=== PATIENT | male | born 1955 | race Hispanic/Latino ===

== ENCOUNTER 2019-08-08 19:35 | Inpatient (IN) | payer MEDICARE ==
[~2019-08-08] VITALS: Ht 180.3 cm; Wt 90.7 kg
--- OUTSIDE RECORDS SUMMARY | 2019-08-08 19:38 | XMS REPORT ---
Author [facility] Address Unknown Phone Unavailable Care Team Providers Care Driller Brake Lining Name Role Phone Unavailable Unavailable Payers Payer Name Policy Type Policy Number Effective Date Expiration Date Problems This patient has no known problems. Allergies, Adverse Reactions, Alerts Allergy Name Allergy Type Status Severity Reaction(s) Onset Date Inactive Date Treating Clinician Comments No Known Allergies DA Active U 2018-07-26 00:00:00 Medications This patient has no known medications. Results Test Description Test Time Test Comments Text Results Atomic Results Result Comments CBC W/AUTO DIFF 2018-07-30 06:21:00 WHITE BLOOD CELL (test code=WBC) 6.4 X10(3) 4.5-11.0 RED BLOOD CELL (test code=RBC) 3.16 X10(6) 4.3-5.9 HEMOGLOBIN (test code=HGB) 11.9 g/dL 13.5-18.0 HEMATOCRIT (test code=HCT) 33.9 % 42.0-52.0 MEAN CELL VOLUME (test code=MCV) 107.3 fl 78-100 MEAN CELL HGB (test code=MCH) 37.7 pg 26.0-34.0 MEAN CELL HGB CONCETRATION (test code=MCHC) 35.1 g/dl 30.0-37.0 RED CELL DISTRIBUTION WIDTH (test code=RDW) 14.9 % 11.5-14.5 PLATELET COUNT (test code=PLT) 149 X10(3) 150-350 MEAN PLATELET VOLUME (test code=MPV) 9.6 fl 8.7-11.4 NEUTROPHIL % (test code=NT%) 52.5 % 36.0-66.0 IMMATURE GRANULOCYTE % (test code=IG%) 0.8 % 0.0-2.0 LYMPHOCYTE % (test code=LY%) 25.4 % 16-50 MONOCYTE % (test code=MO%) 16.1 % 0.0-13.0 EOSINOPHIL % (test code=EO%) 4.6 % 0.0-4.5 BASOPHIL % (test code=BA%) 0.6 % 0.0-1.5 NUCLEATED RBC % (test code=NRBC%) 0.0 % 0-0.2 NEUTROPHIL # (test code=NT#) 3.3 X10(3) 1.7-7.7 IMMATURE GRANULOCYTE # (test code=IG#) 0.05 X10(3)uL 0.00-0.03 LYMPHOCYTE # (test code=LY#) 1.6 X10(3) 0.7-4.0 MONOCYTE # (test code=MO#) 1.0 X10(3) 0.0-0.89 EOSINOPHIL # (test code=EO#) 0.3 X10(3) 0.0-0.6 BASOPHIL # (test code=BA#) 0.0 X10(3) 0.0-0.2 NUCLEATED RBC # (test code=NRBC#) 0.00 K/mm3 0.0-0.1 ANISOCYTOSIS (test code=ANISO) 1+ NOT PRESENT MACROCYTOSIS (test code=MACR) 1+ NOT PRESENT PLATELET ESTIMATE (test code=PLTEST) DECREASED ADEQUATE COMPREHENSIVE METABOLIC [id number] 06:06:00* Test Item Value Reference Range Comments SODIUM (test code=NA) 132 mmol/L 136-145 POTASSIUM (test code=K) 4.1 mmol/L 3.5-5.1 CHLORIDE (test code=CL) 100 mmol/L 98-107 CARBON DIOXIDE (test code=CO2) 26 mmol/L 21-32 GLUCOSE (test code=GLU) 88 mg/dL 70-100 BLOOD UREA NITROGEN (test code=BUN) 15 mg/dL 7-18 GLOMERULAR FILTRATION RATE (test code=GFR) > 60.00 >=60 Reporting units: mL/min/1.73m\\S\\2 (Modified MDRD formula)REFERENCE RANGE: > or=60 ml/min/1.73M2IF PATIENT IS -PRYDEINIG, MULTIPLY REPORTED RESULT BY1.21. CREATININE (test code=CREAT) 0.70 mg/dL 0.67-1.17 TOTAL PROTEIN (test code=PROT) 6.2 g/dl 6.4-8.2 ALBUMIN (test code=ALB) 1.9 g/dl 3.4-5.0 CALCIUM (test code=CA) 7.1 mg/dL 8.5-10.1 BILIRUBIN TOTAL (test code=BILT) 5.2 mg/dl 0.2-1.0 SGOT/AST (test code=AST) 63 U/L 15-37 SGPT/ALT (test code=ALT) 31 U/L 12-78 ALKALINE PHOSPHATASE TOTAL (test code=ALKP) 132 U/L 50-136 CBC W/AUTO [id number] 05:49:00* Test Item Value Reference Range Comments WHITE BLOOD CELL (test code=WBC) 6.4 X10(3) 4.5-11.0 RED BLOOD CELL (test code=RBC) 3.16 X10(6) 4.3-5.9 HEMOGLOBIN (test code=HGB) 11.9 g/dL 13.5-18.0 HEMATOCRIT (test code=HCT) 33.9 % 42.0-52.0 MEAN CELL VOLUME (test code=MCV) 107.3 fl 78-100 MEAN CELL HGB (test code=MCH) 37.7 pg 26.0-34.0 MEAN CELL HGB CONCETRATION (test code=MCHC) 35.1 g/dl 30.0-37.0 RED CELL DISTRIBUTION WIDTH (test code=RDW) 14.9 % 11.5-14.5 PLATELET COUNT (test code=PLT) 149 X10(3) 150-350 MEAN PLATELET VOLUME (test code=MPV) 9.6 fl 8.7-11.4 NUCLEATED RBC % (test code=NRBC%) 0.0 % 0-0.2 NUCLEATED RBC # (test code=NRBC#) 0.00 K/mm3 0.0-0.1 CBC W/AUTO [id number] 07:01:00* Test Item Value Reference Range Comments WHITE BLOOD CELL (test code=WBC) 5.9 X10(3) 4.5-11.0 RED BLOOD CELL (test code=RBC) 2.81 X10(6) 4.3-5.9 HEMOGLOBIN (test code=HGB) 10.6 g/dL 13.5-18.0 HEMATOCRIT (test code=HCT) 30.2 % 42.0-52.0 MEAN CELL VOLUME (test code=MCV) 107.5 fl 78-100 MEAN CELL HGB (test code=MCH) 37.7 pg 26.0-34.0 MEAN CELL HGB CONCETRATION (test code=MCHC) 35.1 g/dl 30.0-37.0 RED CELL DISTRIBUTION WIDTH (test code=RDW) 14.8 % 11.5-14.5 PLATELET COUNT (test code=PLT) 130 X10(3) 150-350 GIANT PLATELETS (test code=PLTG) PRESENT NORMAL MEAN PLATELET VOLUME (test code=MPV) 9.8 fl 8.7-11.4 NUCLEATED RBC % (test code=NRBC%) 0.0 % 0-0.2 NUCLEATED RBC # (test code=NRBC#) 0.00 K/mm3 0.0-0.1 SEGMENTED NEUTROPHILS (test code=SEG) 70 % 36-66 BAND NEUTROPHIL (test code=BAND) 0 % 5-11 LYMPHOCYTE (test code=LYMPH) 13 % 16-50 ATYPICAL LYMPH (test code=ALYMPH) 1 0-0 MONOCYTE (test code=MON) 8 % 0-13 EOSINOPHIL (test code=EOS) 5 % 0-4.5 BASOPHIL (test code=BASO) 2 % 0-1.5 METAMYELOCYTE (test code=META) 1 % >0 BAND ABSOLUTE (test code=BAND#) 0.00 X10(3) 0.0-0.7 NEUTROPHIL ABSOLUTE (test code=NEUTR#) 4.15 X10(3) 1.7-7.7 LYMPH ABSOLUTE (test code=LYMPH#) 0.77 X10(3) 0.7-4.0 ATYPICAL LYMPH ABSOLUTE (test code=ALYMPH#) 0.1 X10(3) 0.0-0.0 MONOCYTE ABSOLUTE (test code=MON#) 0.47 X10(3) 0.0-0.89 BASOPHIL ABSOLUTE (test code=BASO#) 0.1 X10(3) 0.0-0.2 EOSINOPHIL ABSOLUTE (test code=EOS#) 0.30 X10(3) 0.0-0.6 METAMYELO ABSOLUTE (test code=META#) 0.1 X10(3) 0.0-0.0 ANISOCYTOSIS (test code=ANISO) 1+ NOT PRESENT MACROCYTOSIS (test code=MACR) 1+ NOT PRESENT PLATELET ESTIMATE (test code=PLTEST) DECREASED ADEQUATE BASIC METABOLIC [id number] 06:43:00* Test Item Value Reference Range Comments SODIUM (test code=NA) 136 mmol/L 136-145 POTASSIUM (test code=K) 3.4 mmol/L 3.5-5.1 CHLORIDE (test code=CL) 103 mmol/L 98-107 CARBON DIOXIDE (test code=CO2) 26 mmol/L 21-32 GLUCOSE (test code=GLU) 89 mg/dL 70-100 BLOOD UREA NITROGEN (test code=BUN) 16 mg/dL 7-18 GLOMERULAR FILTRATION RATE (test code=GFR) > 60.00 >=60 Reporting units: mL/min/1.73m\\S\\2 (Modified MDRD formula)REFERENCE RANGE: > or=60 ml/min/1.73M2IF PATIENT IS -PRYDEINIG, MULTIPLY REPORTED RESULT BY1.21. CREATININE (test code=CREAT) 0.60 mg/dL 0.67-1.17 CALCIUM (test code=CA) 6.9 mg/dL 8.5-10.1 CBC W/AUTO [id number] 06:27:00* Test Item Value Reference Range Comments WHITE BLOOD CELL (test code=WBC) 5.9 X10(3) 4.5-11.0 RED BLOOD CELL (test code=RBC) 2.81 X10(6) 4.3-5.9 HEMOGLOBIN (test code=HGB) 10.6 g/dL 13.5-18.0 HEMATOCRIT (test code=HCT) 30.2 % 42.0-52.0 MEAN CELL VOLUME (test code=MCV) 107.5 fl 78-100 MEAN CELL HGB (test code=MCH) 37.7 pg 26.0-34.0 MEAN CELL HGB CONCETRATION (test code=MCHC) 35.1 g/dl 30.0-37.0 RED CELL DISTRIBUTION WIDTH (test code=RDW) 14.8 % 11.5-14.5 PLATELET COUNT (test code=PLT) 130 X10(3) 150-350 MEAN PLATELET VOLUME (test code=MPV) 9.8 fl 8.7-11.4 NUCLEATED RBC % (test code=NRBC%) 0.0 % 0-0.2 NUCLEATED RBC # (test code=NRBC#) 0.00 K/mm3 0.0-0.1 CYTOLOGY NON [id number] 15:09:00 RUN DATE: 07/28/18 [facility] LIVE PAGE 1 RUN TIME: 1509 Specimen Inqui ry RUN USER: INTERFACE PATIENT: FAREED FERNANDO ACCT #: H [id number] LOC: [facility] U #: [id number] AGE/SX: 62/M ROOM: [facility] RE07/26/18[facility] DR: Mikel Saldana MD : 53 BED: A DIS: STATUS: ADM IN TLOC: SPEC #: [id number] RECD: 07/27/18 STATUS: ANGELA GERMAN #: [id number] PARRIS: 07/26/18- [facility] DR: Gerson Wei MD ENTERED: 07/27/18 SP TYPE: P OTHR DR: DOES_N OT KNOW Self Referred Gerson Galan MD, Angel Jose MDORDERED: SURG/PATH GROSS, CYTOSPIN PAP/2 GROSS DESCRIPTION: The specimen is re ceived in a container labeled "FAREED FERNANDO R - PERITONEAL FLUID". The specimen consists of 950 cc of unfixed yellow fluid for one H E and one PAP stain. One c ell block was obtained, Bouin's. CODES: [id number] - PERITONEUM, NOS COPIES TO: D OES_NOT KNOW Self Referred Gerson Wei MD [address] [place] [address] Marshal mSith MD [address] [place] [address] PROCEDURES: SURG/PATH GROSS (07/27/18) CYTOSPIN PAP (Incomplete) TISSUES: A. PERITONEUM, NOS - 950CC UNFIXED YELLOW PERITONEAL FLUID PREOPERATIVE DIAGNOSIS/HISTORY ASCITES---- -------- Signed SIGNATURE ON FILE Rigoberto Torres L 9 1509 END OF REPORT CBC W/AUTO [id number] 08:32:00* Test Item Value Reference Range Comments WHITE BLOOD CELL (test code=WBC) 5.3 X10(3) 4.5-11.0 RED BLOOD CELL (test code=RBC) 2.93 X10(6) 4.3-5.9 HEMOGLOBIN (test code=HGB) 10.8 g/dL 13.5-18.0 HEMATOCRIT (test code=HCT) 31.4 % 42.0-52.0 MEAN CELL VOLUME (test code=MCV) 107.2 fl 78-100 MEAN CELL HGB (test code=MCH) 36.9 pg 26.0-34.0 MEAN CELL HGB CONCETRATION (test code=MCHC) 34.4 g/dl 30.0-37.0 RED CELL DISTRIBUTION WIDTH (test code=RDW) 14.6 % 11.5-14.5 PLATELET COUNT (test code=PLT) 116 X10(3) 150-350 GIANT PLATELETS (test code=PLTG) PRESENT NORMAL MEAN PLATELET VOLUME (test code=MPV) 9.8 fl 8.7-11.4 NUCLEATED RBC % (test code=NRBC%) 0.0 % 0-0.2 NUCLEATED RBC # (test code=NRBC#) 0.00 K/mm3 0.0-0.1 SEGMENTED NEUTROPHILS (test code=SEG) 60 % 36-66 BAND NEUTROPHIL (test code=BAND) 0 % 5-11 LYMPHOCYTE (test code=LYMPH) 24 % 16-50 ATYPICAL LYMPH (test code=ALYMPH) 1 0-0 MONOCYTE (test code=MON) 11 % 0-13 EOSINOPHIL (test code=EOS) 3 % 0-4.5 BASOPHIL (test code=BASO) 1 % 0-1.5 BAND ABSOLUTE (test code=BAND#) 0.00 X10(3) 0.0-0.7 NEUTROPHIL ABSOLUTE (test code=NEUTR#) 3.15 X10(3) 1.7-7.7 LYMPH ABSOLUTE (test code=LYMPH#) 1.26 X10(3) 0.7-4.0 ATYPICAL LYMPH ABSOLUTE (test code=ALYMPH#) 0.1 X10(3) 0.0-0.0 MONOCYTE ABSOLUTE (test code=MON#) 0.58 X10(3) 0.0-0.89 BASOPHIL ABSOLUTE (test code=BASO#) 0.1 X10(3) 0.0-0.2 EOSINOPHIL ABSOLUTE (test code=EOS#) 0.16 X10(3) 0.0-0.6 ANISOCYTOSIS (test code=ANISO) 1+ NOT PRESENT MACROCYTOSIS (test code=MACR) 1+ NOT PRESENT PLATELET ESTIMATE (test code=PLTEST) DECREASED ADEQUATE BASIC METABOLIC [id number] 06:17:00* Test Item Value Reference Range Comments SODIUM (test code=NA) 135 mmol/L 136-145 POTASSIUM (test code=K) 3.2 mmol/L 3.5-5.1 CHLORIDE (test code=CL) 103 mmol/L 98-107 CARBON DIOXIDE (test code=CO2) 27 mmol/L 21-32 GLUCOSE (test code=GLU) 132 mg/dL 70-100 BLOOD UREA NITROGEN (test code=BUN) 14 mg/dL 7-18 GLOMERULAR FILTRATION RATE (test code=GFR) > 60.00 >=60 Reporting units: mL/min/1.73m\\S\\2 (Modified MDRD formula)REFERENCE RANGE: > or=60 ml/min/1.73M2IF PATIENT IS -PRYDEINIG, MULTIPLY REPORTED RESULT BY1.21. CREATININE (test code=CREAT) 0.70 mg/dL 0.67-1.17 CALCIUM (test code=CA) 7.5 mg/dL 8.5-10.1 BASIC METABOLIC [id number] 06:16:00* Test Item Value Reference Range Comments SODIUM (test code=NA) 135 mmol/L 136-145 POTASSIUM (test code=K) 3.2 mmol/L 3.5-5.1 CHLORIDE (test code=CL) 103 mmol/L 98-107 CARBON DIOXIDE (test code=CO2) 27 mmol/L 21-32 GLUCOSE (test code=GLU) 132 mg/dL 70-100 BLOOD UREA NITROGEN (test code=BUN) 14 mg/dL 7-18 GLOMERULAR FILTRATION RATE (test code=GFR) >=60 CREATININE (test code=CREAT) mg/dL 0.67-1.17 CALCIUM (test code=CA) 7.5 mg/dL 8.5-10.1 CBC W/AUTO [id number] 06:01:00* Test Item Value Reference Range Comments WHITE BLOOD CELL (test code=WBC) 5.3 X10(3) 4.5-11.0 RED BLOOD CELL (test code=RBC) 2.93 X10(6) 4.3-5.9 HEMOGLOBIN (test code=HGB) 10.8 g/dL 13.5-18.0 HEMATOCRIT (test code=HCT) 31.4 % 42.0-52.0 MEAN CELL VOLUME (test code=MCV) 107.2 fl 78-100 MEAN CELL HGB (test code=MCH) 36.9 pg 26.0-34.0 MEAN CELL HGB CONCETRATION (test code=MCHC) 34.4 g/dl 30.0-37.0 RED CELL DISTRIBUTION WIDTH (test code=RDW) 14.6 % 11.5-14.5 PLATELET COUNT (test code=PLT) 116 X10(3) 150-350 MEAN PLATELET VOLUME (test code=MPV) 9.8 fl 8.7-11.4 NUCLEATED RBC % (test code=NRBC%) 0.0 % 0-0.2 NUCLEATED RBC # (test code=NRBC#) 0.00 K/mm3 0.0-0.[id number] 10:38:00* Test Item Value Reference Range Comments FLUID SOURCE (test code=SOURCEFL) PARACENTESIS FLD FLUID COLOR (test code=COLFL) YELLOW COLORLESS FLUID APPEARANCE (test code=APPFL) SLIGHTLY CLOUDY CLEAR FLUID WBC (test code=WBCFL) 88 /UL FLUID RBC (test code=RBCFL) 7 /UL FLUID POLY (test code=POLYFL) 65 % <25 BODY FLUID CELL COUNT RANGES FLUID TYPE | WBC (ul) | RBC (ul) | ==| Dialysate | <10 | 0 | | Peritoneal | <100 | <25,000 -------| | Pleural/Pericardial| Transudates: <1,000 | <100 | Exudates: >1,000 | >1,000 | | Synovial | <200 | 0 | | FLUID LYMPHOCYTE (test code=LYMPHFL) 16 % The reference range and other method performancespecifications have not been established for this bodyfluid. The test result must be integrated into the clinicalcontext for interpretation. FLUID MONOCYTE (test code=MONOFL) 19 % FLUID EOSINOPHIL (test code=EOSFL) 0 % NONE SEEN Specimen Comments: paracentesisSpecimen Comments: paracentesis fluidFLUID [id number] 10:38:00* Test Item Value Reference Range Comments FLUID GLUCOSE (test code=GLUFL) 99 mg/dL (Not Estab) This test is performed on the [employer]. It wasdeveloped and [facility] characteristics determined [facility]. It has not been cleared or approved by theFDA. The Laboratory is regulated under CLIA as qualified toperform high complexity testing. Specimen Comments: paracentesisSpecimen Comments: paracentesis fluidFLUID [id number] 10:38:00* Test Item Value Reference Range Comments FLUID PROTEIN (test code=PROTFL) 1.5 g/dl 0.0-2.4 This test is performed on the [employer]. It wasdeveloped and its performance characteristics determined by[facility]. It has not been cleared or approved by theFDA. The Laboratory is regulated under CLIA as qualified toperform high complexity testing. Specimen Comments: paracentesisSpecimen Comments: paracentesis fluidFLUID [id number] 10:38:00* Test Item Value Reference Range Comments FLUID ALBUMIN (test code=ALBFL) 0.5 g/dL () : Peritoneal : Pleural : Synovial :: : : :: : Transudate : Exudate : :: : : : :: Not Estab. : Not Estab. : Not Estab.: Not Estab. :: : : : : The method performance specifications have not been established for this test in body fluid. The test result should be integrated into the clinical context for interpretation.The reference intervals and other method performancespecifications have not been established for this test. Thetest result should be integrated into the clinical contextfor interpretation.Performed At: [facility] [id number] [place], [place] [id number] Kwesi Kwan MD Ph:[phone] Specimen Comments: paracentesisSpecimen Comments: paracentesis fluidFLUID LDH 2018-07-27 10:38:00* Test Item Value Reference Range Comments FLUID LDH (test code=LDHFL) 105.6 IU/L (Not Estab.) This test is performed on the [employer]. It wasdeveloped and its [facility] characteristics [facility]. It has not been cleared or approved by theA. The Laboratory is regulated under CLIA as qualified toperform high complexity testing. Specimen Comments: paracentesisSpecimen Comments: paracentesis fluidCBC W/AUTO [id number] 07:13:00* Test Item Value Reference Range Comments WHITE BLOOD CELL (test code=WBC) 6.9 X10(3) 4.5-11.0 RED BLOOD CELL (test code=RBC) 2.95 X10(6) 4.3-5.9 HEMOGLOBIN (test code=HGB) 10.9 g/dL 13.5-18.0 HEMATOCRIT (test code=HCT) 31.6 % 42.0-52.0 MEAN CELL VOLUME (test code=MCV) 107.1 fl 78-100 MEAN CELL HGB (test code=MCH) 36.9 pg 26.0-34.0 MEAN CELL HGB CONCETRATION (test code=MCHC) 34.5 g/dl 30.0-37.0 RED CELL DISTRIBUTION WIDTH (test code=RDW) 14.9 % 11.5-14.5 PLATELET COUNT (test code=PLT) 133 X10(3) 150-350 MEAN PLATELET VOLUME (test code=MPV) 9.9 fl 8.7-11.4 NEUTROPHIL % (test code=NT%) 53.8 % 36.0-66.0 IMMATURE GRANULOCYTE % (test code=IG%) 0.4 % 0.0-2.0 LYMPHOCYTE % (test code=LY%) 27.3 % 16-50 MONOCYTE % (test code=MO%) 16.3 % 0.0-13.0 EOSINOPHIL % (test code=EO%) 1.6 % 0.0-4.5 BASOPHIL % (test code=BA%) 0.6 % 0.0-1.5 NUCLEATED RBC % (test code=NRBC%) 0.0 % 0-0.2 NEUTROPHIL # (test code=NT#) 3.7 X10(3) 1.7-7.7 IMMATURE GRANULOCYTE # (test code=IG#) 0.03 X10(3)uL 0.00-0.03 LYMPHOCYTE # (test code=LY#) 1.9 X10(3) 0.7-4.0 MONOCYTE # (test code=MO#) 1.1 X10(3) 0.0-0.89 EOSINOPHIL # (test code=EO#) 0.1 X10(3) 0.0-0.6 BASOPHIL # (test code=BA#) 0.0 X10(3) 0.0-0.2 NUCLEATED RBC # (test code=NRBC#) 0.00 K/mm3 0.0-0.1 POIKILOCYTOSIS (test code=POIK) 1+ NOT PRESENT ANISOCYTOSIS (test code=ANISO) 2+ NOT PRESENT MACROCYTOSIS (test code=MACR) 2+ NOT PRESENT PLATELET ESTIMATE (test code=PLTEST) DECREASED ADEQUATE BASIC METABOLIC [id number] 06:34:00* Test Item Value Reference Range Comments SODIUM (test code=NA) 132 mmol/L 136-145 POTASSIUM (test code=K) 3.5 mmol/L 3.5-5.1 CHLORIDE (test code=CL) 101 mmol/L 98-107 CARBON DIOXIDE (test code=CO2) 26 mmol/L 21-32 GLUCOSE (test code=GLU) 105 mg/dL 70-100 BLOOD UREA NITROGEN (test code=BUN) 15 mg/dL 7-18 GLOMERULAR FILTRATION RATE (test code=GFR) > 60.00 >=60 Reporting units: mL/min/1.73m\\S\\2 (Modified MDRD formula)REFERENCE RANGE: > or=60 ml/min/1.73M2IF PATIENT IS -PRYDEINIG, MULTIPLY REPORTED RESULT BY1.21. CREATININE (test code=CREAT) 0.90 mg/dL 0.67-1.17 CALCIUM (test code=CA) 7.0 mg/dL 8.5-10.1 BASIC METABOLIC [id number] 06:33:00* Test Item Value Reference Range Comments SODIUM (test code=NA) 132 mmol/L 136-145 POTASSIUM (test code=K) 3.5 mmol/L 3.5-5.1 CHLORIDE (test code=CL) 101 mmol/L 98-107 CARBON DIOXIDE (test code=CO2) 26 mmol/L 21-32 GLUCOSE (test code=GLU) 105 mg/dL 70-100 BLOOD UREA NITROGEN (test code=BUN) 15 mg/dL 7-18 GLOMERULAR FILTRATION RATE (test code=GFR) >=60 CREATININE (test code=CREAT) mg/dL 0.67-1.17 CALCIUM (test code=CA) 7.0 mg/dL 8.5-10.1 CBC W/AUTO [id number] 06:22:00* Test Item Value Reference Range Comments WHITE BLOOD CELL (test code=WBC) 6.9 X10(3) 4.5-11.0 RED BLOOD CELL (test code=RBC) 2.95 X10(6) 4.3-5.9 HEMOGLOBIN (test code=HGB) 10.9 g/dL 13.5-18.0 HEMATOCRIT (test code=HCT) 31.6 % 42.0-52.0 MEAN CELL VOLUME (test code=MCV) 107.1 fl 78-100 MEAN CELL HGB (test code=MCH) 36.9 pg 26.0-34.0 MEAN CELL HGB CONCETRATION (test code=MCHC) 34.5 g/dl 30.0-37.0 RED CELL DISTRIBUTION WIDTH (test code=RDW) 14.9 % 11.5-14.5 PLATELET COUNT (test code=PLT) 133 X10(3) 150-350 MEAN PLATELET VOLUME (test code=MPV) 9.9 fl 8.7-11.4 NUCLEATED RBC % (test code=NRBC%) 0.0 % 0-0.2 NUCLEATED RBC # (test code=NRBC#) 0.00 K/mm3 0.0-0.[id number] 17:31:00* Test Item Value Reference Range Comments FLUID SOURCE (test code=SOURCEFL) PARACENTESIS FLD FLUID COLOR (test code=COLFL) YELLOW COLORLESS FLUID APPEARANCE (test code=APPFL) SLIGHTLY CLOUDY CLEAR FLUID WBC (test code=WBCFL) 88 /UL FLUID RBC (test code=RBCFL) 7 /UL FLUID POLY (test code=POLYFL) 65 % <25 BODY FLUID CELL COUNT RANGES FLUID TYPE | WBC (ul) | RBC (ul) | ==| Dialysate | <10 | 0 | | Peritoneal | <100 | <25,000 -------| | Pleural/Pericardial| Transudates: <1,000 | <100 | Exudates: >1,000 | >1,000 | | Synovial | <200 | 0 | | FLUID LYMPHOCYTE (test code=LYMPHFL) 16 % The reference range and other method performancespecifications have not been established for this bodyfluid. The test result must be integrated into the clinicalcontext for interpretation. FLUID MONOCYTE (test code=MONOFL) 19 % FLUID EOSINOPHIL (test code=EOSFL) 0 % NONE SEEN Specimen Comments: paracentesisSpecimen Comments: paracentesis fluidFLUID [id number] 17:31:00* Test Item Value Reference Range Comments FLUID GLUCOSE (test code=GLUFL) 99 mg/dL (Not Estab) This test is performed on the [employer]. It wasdeveloped and its performance characteristics determined [facility]. It has not been cleared or approved by theA. The Laboratory is regulated under CLIA as qualified toperform high complexity testing. Specimen Comments: paracentesisSpecimen Comments: paracentesis fluidFLUID [id number] 17:31:00* Test Item Value Reference Range Comments FLUID PROTEIN (test code=PROTFL) 1.5 g/dl 0.0-2.4 This test is performed on the [employer]. It wasdeveloped and its performance characteristics determined [facility]. It has not been cleared or approved by theFDA. The Laboratory is regulated under CLIA as qualified toperform high complexity testing. Specimen Comments: paracentesisSpecimen Comments: paracentesis fluidFLUID [id number] 17:31:00* Test Item Value Reference Range Comments FLUID ALBUMIN (test code=ALBFL) gm/dL Specimen Comments: paracentesisSpecimen Comments: paracentesis fluidFLUID LDH 2018-07-26 17:31:00* Test Item Value Reference Range Comments FLUID LDH (test code=LDHFL) 105.6 IU/L (Not Estab.) This test is performed on the Dimension [place] 500. It wasdeveloped and [facility] performance characteristics [facility]. It has not been cleared or approved by theFDA. The Laboratory is regulated under CLIA as qualified toperform high complexity testing. Specimen Comments: paracentesisSpecimen Comments: paracentesis fluid- US PARACENTESIS W [id number] 15:47:00 FAX: Aliza Coburn [place]: [facility] St: ADM Name: Masha FERCHOOTILIAFAREED [facility] : [birth year] Age/S: 62/M [address] [facility] Unit #: [id number] Loc: [address] [address] Phys: Aliza Coburn MD Acct: [id number] Dis Date: Status: ADM IN PHONE #: [phone] Exam Date: 07/26/2018 1514 FAX #: [phone] Reason: ASCITIES EXAMS: CPT CODE: [id number] US PARACENTESIS W IMAGE [id number] PROVIDED REASON FOR EXAM: ASCITIES PROCEDURE: Ultrasound guided paracentesis. OPERATORS: Dr. Wei MEDICATIONS: 2% lidocaine local anesthesia. COMPLICATION: None DESCRIPTION: After the procedure, including indication and potential complications, had been discussed with the patient and questions answered, written informed consent was obtained. The patient was then taken to the interventional suite and placed on the table in supine position. A time out was performed. Limited ultrasound was performed localizing the largest discrete pocket of ascites. Images w ere documented and permanently stored. After prepping and draping the skin of the right abdomen in standard sterile fashion, the peritoneal c avity was accessed using our standard paracentesis kit yielding approximat rola 4850 mL. The paracentesis catheter was removed and a sterile bandage applied. The patient tolerated the procedure well without immediate compl ication and was discharged in stable condition after a period of observati on. FINDINGS: Prominent ascites IMPRESSIO N: Technically successful ultrasound guided paracentesis yielding 4850 mL via the right abdomen. at 1547 Reported and signed by: JACKELYN CRAVEN M.D. CC: Aliza Coburn MD Technologist: RT Gali (R) US Trnscrd Date/Time/By: 07/27/19 19 (1547) : By: [email or web address] Orig Print D/T: S: 07/26/2018 (3012) PAGE 1 Signed Report BODY FLUID CELL [id number] 14:59:00* Test Item Value Reference Range Comments FLUID SOURCE (test code=SOURCEFL) FLUID COLOR (test code=COLFL) COLORLESS FLUID APPEARANCE (test code=APPFL) CLEAR FLUID WBC (test code=WBCFL) /UL FLUID RBC (test code=RBCFL) /UL FLUID POLY (test code=POLYFL) % <25 FLUID LYMPHOCYTE (test code=LYMPHFL) % FLUID EOSINOPHIL (test code=EOSFL) % NONE SEEN Specimen Comments: paracentesisSpecimen Comments: paracentesis fluidFLUID [id number] 14:59:00* Test Item Value Reference Range Comments FLUID GLUCOSE (test code=GLUFL) 99 mg/dL (Not Estab) This test is performed on the Dimension [place] 500. It wasdeveloped and its performance characteristics [facility]. It has not been cleared or approved by theFDA. The Laboratory is regulated under CLIA as qualified toperform high complexity testing. Specimen Comments: paracentesisSpecimen Comments: paracentesis fluidFLUID [id number] 14:59:00* Test Item Value Reference Range Comments FLUID PROTEIN (test code=PROTFL) 1.5 g/dl 0.0-2.4 This test is performed on the Dimension [place] 500. It wasdeveloped and its performance characteristics determined [facility]. It has not been cleared or approved by theFDA. The Laboratory is regulated under CLIA as qualified toperform high complexity testing. Specimen Comments: paracentesisSpecimen Comments: paracentesis fluidFLUID [id number] 14:59:00* Test Item Value Reference Range Comments FLUID ALBUMIN (test code=ALBFL) gm/dL Specimen Comments: paracentesisSpecimen Comments: paracentesis fluidFLUID LDH 2018-07-26 14:59:00* Test Item Value Reference Range Comments FLUID LDH (test code=LDHFL) 105.6 IU/L (Not Estab.) This test is performed on the Dimension [place] 500. It wasdeveloped and its performance characteristics [facility]. It has not been cleared or approved by theFDA. The Laboratory is regulated under CLIA as qualified toperform high complexity testing. Specimen Comments: paracentesisSpecimen Comments: paracentesis fluid- US ABDOMEN [id number] 12:21:00 FAX: Aliza Coburn [place]: [facility]: ADM Name: FAREED ASENCIO [facility] : 12/18/18 52 Age/S: 62/M [address] [facility] Unit #: [id number] Loc: [address] [place] [id number] Phys: Aliza Coburn MD Acct: [id number] Dis Date: Status: ADM IN PHONE #: [phone] Exam Date: 07/26/2018 1133 FAX #: [phone] Reason: ASCITES EXAMS: CPT CODE: [id number] US ABDOMEN LTD 75051 EXAM: Limited ultrasound of the abdomen Location: E5 INDICATION: Ascites, umb ilical hernia, cirrhosis COMPARISON: None DISCUSSION : Nunez scale images of the 4 quadrants of the abdomen were performed. Mod erate to large volume ascites is noted. IMPRESSION: Moderate to large volume ascites. at 1221 Reported and signed by: MATT MARTINEZ M.D. CC: Aliza Coburn MD Technologist: Mata Reinoso RT (R) US Trnscrd Date/Time/By: 07/27/19 19 (1221) : By: [email or web address] Orig Print D/T: S: 07/26/2018 (5681) PAGE 1 Signed Report CBC W/AUTO [id number] 05:27:00* Test Item Value Reference Range Comments WHITE BLOOD CELL (test code=WBC) 5.9 X10(3) 4.5-11.0 RED BLOOD CELL (test code=RBC) 3.21 X10(6) 4.3-5.9 HEMOGLOBIN (test code=HGB) 11.9 g/dL 13.5-18.0 HEMATOCRIT (test code=HCT) 34.1 % 42.0-52.0 MEAN CELL VOLUME (test code=MCV) 106.2 fl 78-100 MEAN CELL HGB (test code=MCH) 37.1 pg 26.0-34.0 MEAN CELL HGB CONCETRATION (test code=MCHC) 34.9 g/dl 30.0-37.0 RED CELL DISTRIBUTION WIDTH (test code=RDW) 14.4 % 11.5-14.5 PLATELET COUNT (test code=PLT) 137 X10(3) 150-350 MEAN PLATELET VOLUME (test code=MPV) 9.6 fl 8.7-11.4 NEUTROPHIL % (test code=NT%) 58.0 % 36.0-66.0 IMMATURE GRANULOCYTE % (test code=IG%) 0.3 % 0.0-2.0 LYMPHOCYTE % (test code=LY%) 23.5 % 16-50 MONOCYTE % (test code=MO%) 15.7 % 0.0-13.0 EOSINOPHIL % (test code=EO%) 2.0 % 0.0-4.5 BASOPHIL % (test code=BA%) 0.5 % 0.0-1.5 NUCLEATED RBC % (test code=NRBC%) 0.0 % 0-0.2 NEUTROPHIL # (test code=NT#) 3.4 X10(3) 1.7-7.7 IMMATURE GRANULOCYTE # (test code=IG#) 0.02 X10(3)uL 0.00-0.03 LYMPHOCYTE # (test code=LY#) 1.4 X10(3) 0.7-4.0 MONOCYTE # (test code=MO#) 0.9 X10(3) 0.0-0.89 EOSINOPHIL # (test code=EO#) 0.1 X10(3) 0.0-0.6 BASOPHIL # (test code=BA#) 0.0 X10(3) 0.0-0.2 NUCLEATED RBC # (test code=NRBC#) 0.00 K/mm3 0.0-0.1 ANISOCYTOSIS (test code=ANISO) 1+ NOT PRESENT MACROCYTOSIS (test code=MACR) 1+ NOT PRESENT PLATELET ESTIMATE (test code=PLTEST) DECREASED ADEQUATE URINALYSIS W REFLEX [id number] 02:43:00* Test Item Value Reference Range Comments UA COLOR (test code=COLU) Polly YELLOW UA APPEARANCE (test code=APPU) CLEAR CLEAR UA GLUCOSE DIPSTICK (test code=DGLUU) NORMAL mg/dl NORMAL UA BILIRUBIN DIPSTICK (test code=BILU) NEGATIVE mg/dl NEGATIVE UA KETONE DIPSTICK (test code=KETU) 5 mg/dl NEGATIVE UA SPECIFIC GRAVITY (test code=SGU) 1.016 1.001-1.035 UA BLOOD DIPSTICK (test code=LINDA) NEGATIVE /UL NEGATIVE UA PH DIPSTICK (test code=JOANNE) 8.0 4.6-8.0 UA PROTEIN DIPSTICK (test code=PROU) NEGATIVE mg/dl NEGATIVE UA UROBILINIOGEN DIPSTICK (test code=URO) 1 mg/dl NORMAL UA NITRITE DIPSTICK (test code=JESÚS) NEGATIVE NEGATIVE UA LEUKOCYTE ESTERASE DIPSTICK (test code=LEUU) NEGATIVE /UL NEGATIVE UA COMMENT (test code=COMU) CLN CATCH UA WBC (test code=WBCU) 0-2 #/hpf 0-5 UA RBC (test code=RBCU) 0-2 #/hpf 0-5 URINALYSIS W REFLEX [id number] 02:42:00* Test Item Value Reference Range Comments UA COLOR (test code=COLU) Polly YELLOW UA APPEARANCE (test code=APPU) CLEAR CLEAR UA GLUCOSE DIPSTICK (test code=DGLUU) NORMAL mg/dl NORMAL UA BILIRUBIN DIPSTICK (test code=BILU) NEGATIVE mg/dl NEGATIVE UA KETONE DIPSTICK (test code=KETU) 5 mg/dl NEGATIVE UA SPECIFIC GRAVITY (test code=SGU) 1.016 1.001-1.035 UA BLOOD DIPSTICK (test code=LINDA) NEGATIVE /UL NEGATIVE UA PH DIPSTICK (test code=JOANNE) 8.0 4.6-8.0 UA PROTEIN DIPSTICK (test code=PROU) NEGATIVE mg/dl NEGATIVE UA UROBILINIOGEN DIPSTICK (test code=URO) mg/dl NORMAL UA NITRITE DIPSTICK (test code=JESÚS) NEGATIVE NEGATIVE UA LEUKOCYTE ESTERASE DIPSTICK (test code=LEUU) NEGATIVE /UL NEGATIVE UA COMMENT (test code=COMU) CLN CATCH UA WBC (test code=WBCU) 0-2 #/hpf 0-5 UA RBC (test code=RBCU) 0-2 #/hpf 0-5 COMPREHENSIVE METABOLIC [id number] 01:45:00* Test Item Value Reference Range Comments SODIUM (test code=NA) 132 mmol/L 136-145 POTASSIUM (test code=K) 4.2 mmol/L 3.5-5.1 CHLORIDE (test code=CL) 99 mmol/L 98-107 CARBON DIOXIDE (test code=CO2) 28 mmol/L 21-32 GLUCOSE (test code=GLU) 107 mg/dL 70-100 BLOOD UREA NITROGEN (test code=BUN) 7 mg/dL 7-18 GLOMERULAR FILTRATION RATE (test code=GFR) > 60.00 >=60 Reporting units: mL/min/1.73m\\S\\2 (Modified MDRD formula)REFERENCE RANGE: > or=60 ml/min/1.73M2IF PATIENT IS -PRYDEINIG, MULTIPLY REPORTED RESULT BY1.21. CREATININE (test code=CREAT) 0.60 mg/dL 0.67-1.17 TOTAL PROTEIN (test code=PROT) 7.1 g/dl 6.4-8.2 ALBUMIN (test code=ALB) 2.4 g/dl 3.4-5.0 CALCIUM (test code=CA) 7.5 mg/dL 8.5-10.1 BILIRUBIN TOTAL (test code=BILT) 6.6 mg/dl 0.2-1.0 SGOT/AST (test code=AST) 86 U/L 15-37 SGPT/ALT (test code=ALT) 35 U/L 12-78 ALKALINE PHOSPHATASE TOTAL (test code=ALKP) 190 U/L 50-136 [id number] 01:45:00* Test Item Value Reference Range Comments AMMONIA (test code=AMM) 27 umol/L 11-32 PROTHROMBIN [id number] 01:45:00* Test Item Value Reference Range Comments PROTHROMBIN TIME PATIENT (test code=PTP) 16.1 SECONDS 8.7-12.1 THERAPEUTIC LEVEL: 1.5 TO 1.9 TIMES NORMAL RANGE INTERNATIONAL NORMAL RATIO (test code=INR) 1.5 Recommended Therapeutic PT Ratios For Oral AnticoagulantTherapy. CONDITION INT'L NORMALIZED PT RATIO Prophylaxis of venous thrombosis 2.0 - 3.0in high risk medical or surgicalpatients, treatment of venousthrombosis, prevention of embolism. Prevention of recurrent embolism, 2.5 - 3.5or treatment of patients with mechanicalprosthetic heart valves. THROMBOPLASTIN TIME [id number] 01:45:00* Test Item Value Reference Range Comments THROMBOPLASTIN TIME PARTIAL (test code=PTT) 31.8 seconds 22.8-34.4 CBC W/AUTO [id number] 01:30:00* Test Item Value Reference Range Comments WHITE BLOOD CELL (test code=WBC) 5.9 X10(3) 4.5-11.0 RED BLOOD CELL (test code=RBC) 3.21 X10(6) 4.3-5.9 HEMOGLOBIN (test code=HGB) 11.9 g/dL 13.5-18.0 HEMATOCRIT (test code=HCT) 34.1 % 42.0-52.0 MEAN CELL VOLUME (test code=MCV) 106.2 fl 78-100 MEAN CELL HGB (test code=MCH) 37.1 pg 26.0-34.0 MEAN CELL HGB CONCETRATION (test code=MCHC) 34.9 g/dl 30.0-37.0 RED CELL DISTRIBUTION WIDTH (test code=RDW) 14.4 % 11.5-14.5 PLATELET COUNT (test code=PLT) 137 X10(3) 150-350 MEAN PLATELET VOLUME (test code=MPV) 9.6 fl 8.7-11.4 NUCLEATED RBC % (test code=NRBC%) 0.0 % 0-0.2 NUCLEATED RBC # (test code=NRBC#) 0.00 K/mm3 0.0-0.1
[2019-08-08 19:51] LABS: BASOPHILS % 0.2 % (0.0-1.0); EOSINOPHILS % 0.1 % (0.0-6.0); HEMATOCRIT 32.6 % (38.2-49.6); HEMOGLOBIN 11.2 g/dL (14.0-18.0); LYMPHOCYTES # (AUTO) 0.8 (1.0-3.2); LYMPHOCYTES % 9.1 % (18.0-39.1); MEAN CORPUSCULAR HEMOGLOBIN 32.2 pg (28-32); MEAN CORPUSCULAR HGB CONC 34.4 g/dL (31-35); MEAN CORPUSCULAR VOLUME 93.7 fL (81-99); MONOCYTES # (AUTO) 0.9 (0.2-0.8); MONOCYTES % 10.9 % (4.4-11.3); NEUTROPHILS # (AUTO) 6.5 (2.1-6.9); NEUTROPHILS % 79.2 % (38.7-80.0); PLATELET COUNT 308 x10e3/uL (140-360); RED BLOOD COUNT 3.48 x10e6/uL (4.3-5.7); RED CELL DISTRIBUTION WIDTH 16.1 % (11.7-14.4)
[2019-08-08] MEDS ORDERED: SODIUM CHLORIDE 0.9% 1000ML 1,000 ML IV STA (19:59)
[2019-08-08 20:00] LABS: INR 1.31; PROTHROMBIN TIME 17.2 seconds (11.9-14.5)
[2019-08-08] MEDS ORDERED: SODIUM CHLORIDE 0.9% 1000ML 1,000 ML ONE (20:06)
[2019-08-08 20:11] LABS: ALANINE AMINOTRANSFERASE 13 IU/L (0-55); ALBUMIN 3.8 g/dL (3.5-5.0); ALBUMIN/GLOBULIN RATIO 0.8 (0.8-2.0); ALKALINE PHOSPHATASE 168 IU/L (40-150); ANION GAP 13.3 mmol/L (8-16); BLOOD UREA NITROGEN 20 mg/dL (7-26); BUN/CREATININE RATIO 16 (6-25); CALCIUM 9.2 mg/dL (8.4-10.2); CARBON DIOXIDE 24 mmol/L (22-29); CHLORIDE 98 mmol/L (98-107); CREATINE KINASE 52 IU/L (30-200); CREATININE, SERUM 1.28 mg/dL (0.72-1.25); EST GLOMERULAR FILTRATION RATE 56 ML/MIN (60-); GLUCOSE 129 mg/dL (74-118); LIPASE 43 U/L (8-78); POTASSIUM 5.3 mmol/L (3.5-5.1); SODIUM 130 mmol/L (136-145)
[2019-08-08] MEDS ORDERED: SPIRONOLACTONE25 MG PO (20:12)
[2019-08-08] MEDS ORDERED: MIDODRINE HCL2.5 MG PO (20:12)
[2019-08-08] MEDS ORDERED: FOLIC ACID0.8 MG PO (20:12)
[2019-08-08] MEDS ORDERED: ONDANSETRON ODT8 MG PO (20:12)
[2019-08-08] MEDS ORDERED: FUROSEMIDE40 MG PO (20:12)
[2019-08-08] MEDS ORDERED: XIFAXAN550 MG PO (20:12)
[2019-08-08] MEDS ORDERED: PANTOPRAZOLE SO40 MG PO (20:12)
[2019-08-08] MEDS ORDERED: LACTULOSE20 GM/30 M PO (20:12)
[2019-08-08] MEDS ORDERED: SODIUM CHLORIDE 0.9% 50ML 50 ML ONE (20:28)
[2019-08-08] MEDS ORDERED: IOPAMIDOL 370 MG/ML 200 ML INFUS..BTL INJ ONE (20:28)
--- NOTE | 2019-08-08 21:16 | Diagnostic Imaging Report ---
History:Altered mental status Comparison studies: None Technique: Axial images were obtained from the skull base to the vertex. Coronal and sagittal images reconstructed from the axial data. Dose modulation, iterative reconstruction, and/or weight based adjustment of the mA/kV was utilized to reduce the radiation dose to as low as reasonably achievable. Intravenous contrast: None Findings: Scalp/skull: No abnormalities. Extra-axial spaces: No masses. No fluid collections. Brain sulci: Mildly prominent. Ventricles: Mild compensatory dilatation. No hydrocephalus. Parenchyma: Subtle hypodensities in the supratentorial white matter are small vessel ischemic changes. No masses, hemorrhage, acute or chronic cortical vascular insults. Sellar/suprasellar region: No abnormalities. Craniocervical junction: Patent foramen magnum. No Chiari one malformation. Incidental findings: Atherosclerotic calcifications in the carotid siphons . Impression: No acute abnormalities. Chronic findings: 1. Mild generalized volume loss. 2. Mild supratentorial white matter small vessel ischemic changes. Signed by: Dr. Cali Sandoval M.D. on 08/08/2019 9:13 PM
--- NOTE | 2019-08-08 21:38 | NUR ---
Patient pulled out RAC IV and was found ambulating by himself. New IV started and sitter requested at this time.
--- NOTE | 2019-08-08 21:42 | Diagnostic Imaging Report ---
CT Abdomen And Pelvis with Intravenous Contrast INDICATION: Altered level of conscious, abdominal pain, nausea, vomiting ^abdominal distension ^[id number] ^2029 TECHNIQUE: Thin collimation axial images obtained from the diaphragm to the level of the pubic symphysis following the uneventful administration of 100 cc of low osmolar, nonionic intravenous contrast. Dose reduction techniques used: Automated exposure control, adjustment of the mAs and/or kVp according to patient size, standardized low-dose protocol, and/or iterative reconstruction technique. RADIATION DOSE: Total DLP: 764.76 mGy*cm Estimated effective dose: (DLP x 0.015 x size factor) mSv CTDIvol has been reviewed. It is below the limits set by the Radiation Protocol Committee (RPC). COMPARISON: None. ABDOMEN FINDINGS: Lung Bases: Volume loss of the right hemithorax. Rounded atelectasis in the lateral right upper lobe measures 7.3 x 3.3 cm. Rounded atelectasis in the right lower lobe measures 5.1 x 6.3 cm. There is a loculated right pleural effusion, moderate in size and containing several droplets of air. A prominent subcarinal lymph node measures 14 mm in short axis. The left lung is hyperexpanded but is clear. There are large varices lateral to the esophagus. Liver: Cirrhosis. Hypervascular exophytic mass arising from segment 4 measures 2.4 x 1.7 cm. Hypervascular mass in segment 2/3 measures 4.2 x 4.3 cm. The portal vein is not visualized suggestive of chronic occlusion. Gallbladder: Present and contracted. No biliary ductal dilatation. Pancreas: Normal attenuation without mass or ductal dilatation. Spleen: Normal in size. No evidence of mass. Adrenal Glands: No evidence for mass. Kidneys: Right: Normal enhancement. No soft tissue mass. No hydronephrosis. Left: Normal enhancement. No soft tissue mass. No hydronephrosis. Lymph Nodes: No lymphadenopathy. Aorta: Normal in diameter. Scattered calcifications. IVC: The intrahepatic IVC is diminutive. The suprahepatic and intrahepatic IVC appear patent. Portal system: The SMV is patent. There are large perigastric varices anastomosis to the large varix in the lower chest. There are small esophageal varices. PELVIS FINDINGS: Bowel: Stomach: Collapsed but grossly normal in appearance. Small Bowel: Postoperative changes. Mild patulousness at the anastomosis. There is a small bowel containing umbilical hernia. The small bowel loops within the hernia are distended with fluid but does not appear dilated. There is normal mural enhancement throughout the small bowel. Large Bowel: Moderate stool burden. No mural thickening or pericolonic inflammation. Appendix: Not visualized. Bladder: Normal. Peritoneum/retroperitoneum: No free fluid or fluid collection. Soft tissues: Umbilical hernia aperture is approximately 3.2 cm. No fluid in the hernia sac. There is mild bilateral gynecomastia. Bones: No focal osseous lesions. IMPRESSION: 1. Cirrhosis with masses in the left lobe suggestive of HCC. 2. 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 3. Loculated right pleural effusion containing small droplets of air, possibly secondary to thoracentesis attempt; volume loss of the right chest, and rounded atelectasis of the upper and lower lobes. 4. Prominent subcarinal lymph node suggestive of a neoplastic process, possibly metastasis. 5. Small bowel containing umbilical hernia. The small bowel loops are distended with fluid. This may represent mild ileus. There is no conclusive evidence of incarceration. 6. No splenomegaly or ascites. Signed by: Dr. Kaykay Manning MD on 08/08/2019 9:39 PM
[2019-08-08 21:51] LABS: CLARITY,URINE SL CLOUDY (CLEAR); COLOR,URINE YELLOW (YELLOW); KETONES,URINE NEGATIVE (NEGATIVE); LEUKOCYTE ESTERASE ,URINE NEGATIVE (NEGATIVE); NITRITE,URINE NEGATIVE (NEGATIVE); PROTEIN,URINE DIPSTICK NEGATIVE (NEGATIVE)
[2019-08-08 21:52] LABS: BILIRUBIN,URINE NEGATIVE (NEGATIVE); URINE UROBILINOGEN 1 mg/dL (0.2 - 1)
--- NOTE | 2019-08-08 21:57 | NUR ---
Patient discontinued second IV. Will start another IV when sitter arrives. invasive cardiovascular technologist at bedside at this time.
[2019-08-08 22:05] LABS: AMORPHOUS SEDIMENT,URINE MANY (FEW); BACTERIA,URINE MODERATE /HPF
[2019-08-08 22:35] VITALS: BP 114/64
--- NOTE | 2019-08-08 22:50 | NUR ---
Patient received via stretcher from ER. AAO x 2. Patient had no complaints of pain. Respirations even and non-labored. Sitter at bedside. Telemetry Box in place (SR @ 92). Patient could not provide medical/surgical history. Initial physical assessment performed. Wound dressing noted on bilateral feet. Fall precautions implemented. Patient oriented to room, call light and plan of care. Patient instructed to call for assistance when needed. Call light within reach.
[2019-08-08] MEDS ORDERED: LACTULOSE SYRUP 20 GM/30 ML UDC PO SCH (23:00)
[2019-08-08 23:15] VITALS: BP 114/64
[2019-08-09] VITALS (9 sets, daily range): BP systolic 99–125; BP diastolic 56–84
[2019-08-09 05:26] LABS: BASOPHILS % 0.5 % (0.0-1.0); EOSINOPHILS % 0.6 % (0.0-6.0); HEMOGLOBIN 10.7 g/dL (14.0-18.0); LYMPHOCYTES # (AUTO) 1.3 (1.0-3.2); MEAN CORPUSCULAR HEMOGLOBIN 31.6 pg (28-32); MEAN CORPUSCULAR HGB CONC 33.4 g/dL (31-35); MEAN CORPUSCULAR VOLUME 94.4 fL (81-99); MONOCYTES # (AUTO) 0.8 (0.2-0.8); MONOCYTES % 13.4 % (4.4-11.3); NEUTROPHILS # (AUTO) 4.1 (2.1-6.9); PLATELET COUNT 290 x10e3/uL (140-360); RED BLOOD COUNT 3.39 x10e6/uL (4.3-5.7); RED CELL DISTRIBUTION WIDTH 16.2 % (11.7-14.4)
[2019-08-09 05:41] LABS: ALANINE AMINOTRANSFERASE 12 IU/L (0-55); ALBUMIN 3.4 g/dL (3.5-5.0); ALBUMIN/GLOBULIN RATIO 0.8 (0.8-2.0); ALKALINE PHOSPHATASE 140 IU/L (40-150); ANION GAP 13.3 mmol/L (8-16); BLOOD UREA NITROGEN 17 mg/dL (7-26); BUN/CREATININE RATIO 18 (6-25); CALCIUM 9.3 mg/dL (8.4-10.2); CARBON DIOXIDE 21 mmol/L (22-29); CHLORIDE 100 mmol/L (98-107); CREATININE, SERUM 0.96 mg/dL (0.72-1.25); EST GLOMERULAR FILTRATION RATE > 60 ML/MIN (60-); GLUCOSE 102 mg/dL (74-118); POTASSIUM 4.3 mmol/L (3.5-5.1); SODIUM 130 mmol/L (136-145)
--- NOTE | 2019-08-09 06:10 | NUR ---
Dr. John paged regarding "Routine Consult". Reason: Right pleural effusion. Awaiting call back.
[2019-08-09 06:13] LABS: CREATINE KINASE MB 0.9 ng/mL (0-5.0)
--- NOTE | 2019-08-09 06:19 | NUR ---
Dr. Gaitan paged regarding "Routine Consult". Reason: Hepatocellular Carcinoma Cancer (HCC). Awaiting call back.
--- NOTE | 2019-08-09 07:00 | NUR ---
Patient resting comfortably. Walking rounds done. Bed-side shift report given to oncoming nurse regarding patient's status.
--- NOTE | 2019-08-09 11:46 | Consultation ---
DATE OF CONSULTATION: Pulmonary Consultation REASON FOR CONSULT: Pleural effusion. HISTORY OF PRESENT ILLNESS: Mr. Gagnon is a 63-year-old male, who was admitted because of abdominal pain. The patient is unable to give me any history because of his altered mental status and hepatic encephalopathy. I spoke to the patient's son, Chele, who knows the history. The patient has history of chronic liver disease and he follows up at [facility] with Dr. Jones and they have been told that he has stage IV or last stage cirrhosis and he develops pleural effusions and ascites off and on and has been drained multiple times in the past. Currently, he is complaining of some abdominal discomfort, but denies any chest pain, nausea, vomiting, or shortness of breath. He is sleepy, but arousable and able to carry out conversation, but is confused. REVIEW OF SYSTEMS: Unable to elicit detailed review of systems from the patient because of his mental status. PAST MEDICAL HISTORY: Cirrhosis of liver and the patient has treatment at [facility]. FAMILY AND SOCIAL HISTORY: Previous history of smoking. Does not smoke anymore. PHYSICAL EXAMINATION: VITAL SIGNS: Temperature 97.3, pulse of 100, and blood pressure 103/56. CHEST: Clear to auscultation. Decreased air entry on the right side. HEART: S1 and S2 audible. ABDOMEN: Soft, mildly distended. EXTREMITIES: No pedal edema. NEUROLOGICAL: He is awake, arousable, but sleepy. Moving all four extremities. LABORATORY DATA: Reviewed. Sodium 130, potassium 4.3, BUN is 17, and creatinine 0.96. White count of [address] of the abdomen and pelvis is showing nodular liver and also a mass suggestive of hepatocellular carcinoma, chronically occluded portal vein and large varices extending into the chest and large pleural effusion. ASSESSMENT/PLAN: Mr. Gagnon is a 63-year-old male with chronic liver disease and possibility of hepatocellular carcinoma. However, the son told me that there was no such discussion. They were told that there is possibly a spot on the lung, but the discussion about any cancer was never done. His ammonia level was [address] showing evidence of pleural effusion and there is a history of recurrent pleural effusions per the son. Current problems: 1. 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 I will request Interventional Radiology for thoracentesis. 2. Chronic liver disease with possibility of hepatocellular carcinoma. Per the CT results, we will defer that management to Gastroenterology. 3. Increased ammonia. The patient has been started on lactulose 20 g b.i.d. I will increase it to three times a day. 4. I will also start the patient on spironolactone and diuretics. Hemoglobin and hematocrit have been stable so far. Discussed with son over the phone. Thank you for this consult. MD TAMIKO Ribeiro/YESSI /[id number]
[2019-08-09] MEDS: SPIRONOLACTONE 25 MG TAB PO SCH (12:00)
[2019-08-09] MEDS: MIDODRINE 2.5 MG TAB PO SCH ×2 (14:00→18:24)
--- NOTE | 2019-08-09 15:05 | Diagnostic Imaging Report ---
Ultrasound guided thoracentesis History: Right pleural effusion Comparison: none Technique: Written informed consent was obtained after discussing risks, benefits, and alternatives of the procedure with the patient. Patient was brought to the ultrasound suite and placed on the table in upright position. Pre-procedural ultrasound demonstrates a small, complex, loculated appearing right pleural effusion pleural effusion. Suitable percutaneous access site was chosen in the posterior right chest. Overlying skin was prepared and draped in the usual sterile fashion. Planned needle tract was anesthetized with dilute Lidocaine for local anesthesia. Using sonographic guidance, an 5 Kiswahili Yueh needle was advanced into the right pleural effusion. Occasional Caregiver images saved in the patient's medical record. Needle was removed, and catheter was advanced. Only 450 cc of serosanguineous fluid with debris could be evacuated. The catheter was removed. Hemostasis achieved at puncture site by direct compression. The patient tolerated the procedure well. There were no complications. Post procedure chest radiograph was ordered. Impression: Ultrasound images demonstrate complex, loculated right pleural effusion. Technically successful sonographic guided right thoracentesis with evacuation of 450 cc of serosanguineous fluid with debris. Please note that complete evacuation could not be performed given the complex, loculated nature of the fluid. Signed by: Dr. Zack Cedillo MD on 08/09/2019 3:02 PM
--- NOTE | 2019-08-09 15:10 | Diagnostic Imaging Report ---
EXAM: CHEST SINGLE (NOT PORTABLE) DATE: 08/09/2019 2:40 PM INDICATION: Status post thoracentesis COMPARISON: CT abdomen/pelvis from 08/08/2019, no prior chest radiographs available for comparison. FINDINGS: There has been interval reduction in right-sided pleural fluid and improved aeration of the right lung in comparison to the loop sewer image obtained from from the recent prior CT abdomen/pelvis examination. There is a small-moderate residual loculated right effusion remaining. There is no evidence for pneumothorax status post thoracentesis. Patchy opacities are identified within the right mid and lower lung zone which likely reflect areas of round atelectasis as noted on the recent prior CT examination. The left lung is clear. There is persistent mild rightward mediastinal shift. The cardiomediastinal silhouette is otherwise unremarkable. No acute osseous abnormalities identified. IMPRESSION: No evidence for pneumothorax status post right-sided thoracentesis. Small-moderate residual complex right pleural effusion remains. Patchy airspace opacities noted within the right lung which may reflect areas of round atelectasis as noted on the recent prior CT examination. Signed by: Dr. Zack Cedillo MD on 08/09/2019 3:07 PM
[2019-08-09 16:59] LABS: BODY FLUID APPEARANCE CLOUDY; BODY FLUID COLOR RED; BODY FLUID TYPE PLEURAL
[2019-08-09] MEDS: LACTULOSE SYRUP 20 GM/30 ML UDC PO SCH ×2 (17:02→20:50)
[2019-08-09] MEDS: RIFAXIMIN 550 MG TABLET PO SCH (17:15)
[2019-08-09 17:18] LABS: RBC,BODY FLUID 6900 cells/uL; WBC,BODY FLUID 35 cells/uL
--- NOTE | 2019-08-09 18:26 | NUR ---
Patient up in bed , not in any distress, Alert no confusion or agitation now
[2019-08-09 18:53] LABS: LYMPHOCYTES,BODY FLUID 83 %; MONO/MACROPHG,BODY FLUID 6 %; NEUTROPHILS,BODY FLUID 11 %
--- NOTE | 2019-08-09 19:15 | NUR ---
Patient received lying in bed. AAO x 2. No acute distress noted. Bed locked and in lowest position. Bed rails up x 2. Patient instructed to call for assistance when needed. Call light within reach.
[2019-08-10] VITALS (8 sets, daily range): BP systolic 90–121; BP diastolic 53–86
--- NOTE | 2019-08-10 00:16 | NUR ---
Patient complained of abdominal pain (11/15) . Patient also appears restless . Dr. Ho notified. New orders received for [place] 5 mg Q6H PRN and Melatonin 5 mg HS.
--- NOTE | 2019-08-10 00:40 | History and Physical ---
CHIEF COMPLAINT: Encephalopathy. HISTORY OF PRESENT ILLNESS: This is a 63-year-old male with multiple comorbidities of liver cirrhosis, being treated at [facility], comes into the ED with complaints of abdominal pain and also underlying altered mental status. Apparently, the patient has been ongoing like this for the last several days. He does take lactulose at home as well as midodrine for his underlying liver cirrhosis. The patient apparently has chronic liver disease and follows up with a [facility] Dr. Jones. He has been told that he has stage IV and his last stage of cirrhosis. He comes in with underlying pleural effusions, ascites, and has had multiple paracenteses and thoracenteses in the past. The patient is complaining of abdominal discomfort, but denies any chest pain, nausea, vomiting, or any shortness of breath. The patient was seen and evaluated at bedside on the medical floor. He is currently doing well. He is still confused on examination. Unsure about the patient's baseline. REVIEW OF SYSTEMS: Pertinent positive, altered mental status. Unable to obtain the rest of 14-point review of systems as the patient is currently confused. ALLERGIES: NO KNOWN DRUG ALLERGIES. HOME MEDICATIONS: Folic acid, Lasix, lactulose, midodrine, Protonix, rifaximin, Aldactone. PAST MEDICAL HISTORY: Liver cirrhosis stage IV, chronic hypotension from liver cirrhosis, anemia of chronic disease, chronic hyponatremia. PAST SURGICAL HISTORY: None. PAST FAMILY HISTORY: Hypertension and diabetes. SOCIAL HISTORY: No drugs. No alcohol. Does not smoke. Good social support. He has children. PHYSICAL EXAMINATION: VITAL SIGNS: Temperature 98.4, pulse 84, respiratory rate 16, blood pressure is 99/70, pulse ox 96% on room air. GENERAL: He is alert. He is awake. He is oriented x1. HEENT: Head is normocephalic and atraumatic. Eyes; pupils are equal, round, and reactive to light bilaterally. Extraocular muscles intact bilaterally. Throat; no evidence of erythema or exudates in the posterior pharynx. He has poor dentition. NECK: Supple. Good range of motion throughout. PULMONARY: Clear to auscultation bilaterally. No wheezing, rales, or rhonchi. No crackles appreciated. CARDIOVASCULAR: Positive S1 and S2. No murmurs, rubs, or gallops. ABDOMEN: Soft, nondistended, nontender to palpation. Bowel sounds present. MUSCULOSKELETAL: Strength is 5/5 throughout. No evidence of any muscle deficits on examination. No weakness appreciated. NEUROLOGICAL: Cranial nerves II through XII are grossly intact. No evidence of any neurological deficits on exam. SKIN: Intact. Warm to touch. Good cap refill. PSYCHIATRIC: Confused. EXTREMITIES: No edema. Good range of motion throughout. LABORATORY DATA: Labs show white count was 6.2, hemoglobin 10.7, hematocrit is 32, and platelets of 290. Coagulation; PT 17, INR 1.3. Chemistry; sodium 130, potassium 4.3, chloride 100, bicarb 21, anion gap of 13, BUN 17, creatinine 0.96, glucose 102, calcium 9.3, total bilirubin was 2.2, AST 31, ALT 12, alkaline phosphatase 140. Ammonia level was 155. CK 54. Troponins were negative. Total protein 7.7, albumin 3.4. Lipase level 43. Alpha-fetoprotein is pending. Urinalysis negative. Body fluid, he had status post thoracentesis performed today. MICROBIOLOGY: Thoracentesis fluid pending results. IMAGING STUDIES: CT abdomen and pelvis shows cirrhosis with mass in the left lobe, suggestive of hepatocellular carcinoma. 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 Loculated right pleural effusion containing small droplets of air, possibly secondary to thoracentesis attempt. Volume loss of the right chest and rounded atelectasis of the right upper and lower lobes. Prominent subcarinal lymph, suggestive of neoplastic process, possibly metastasis. Small bowel containing umbilical hernia. The small bowel loops are distended with fluid. They may represent mild ileus. There is no conclusive evidence of incarceration. No splenomegaly or ascites. CT of the brain, he has no acute abnormalities. Thoracentesis ultrasound shows 450 mL of serosanguineous fluid with debris. Chest x-ray post thoracentesis shows no evidence of pneumothorax. IMPRESSION: 1. Hepatic encephalopathy with hyperammonemia. 2. Chronic hyponatremia secondary to liver cirrhosis. 3. Chronic hypotension secondary to liver cirrhosis. 4. Pulmonary edema, status post thoracentesis. 5. Stage IV metastatic cancer, likely liver in nature. PLAN: At this time, Pulmonary and Oncology have been consulted. Awaiting Oncology recommendations. Pulmonary recommendations noted, status post thoracentesis of 450 mL of fluid removed. Pending cultures. His overall state is very poor prognosis. Resume same home medications including rifaximin and lactulose. Repeat labs in the morning including CBC, BMP, and ammonia level. It seems the patient to truly benefit from palliative care and likely hospice. This patient has a very, very poor prognosis. I will await final recommendations by Oncology before pursuing that. His INR is already elevated. We will put him on SCDs. Regular diet. PT and OT evaluation. MD MANUEL Cunningham/MODL /[id number]
[2019-08-10] MEDS: MELATONIN 5 MG TABLET PO SCH ×2 (01:07→20:54)
[2019-08-10] MEDS: HYDROCODONE/APAP 5MG-325MG TAB PO PRN (01:08)
[2019-08-10] MEDS: MIDODRINE 2.5 MG TAB PO SCH ×3 (06:00→17:33)
[2019-08-10 06:03] LABS: BASOPHILS % 0.6 % (0.0-1.0); EOSINOPHILS % 0.8 % (0.0-6.0); HEMATOCRIT 29.6 % (38.2-49.6); LYMPHOCYTES # (AUTO) 1.2 (1.0-3.2); LYMPHOCYTES % 22.9 % (18.0-39.1); MEAN CORPUSCULAR HEMOGLOBIN 31.9 pg (28-32); MEAN CORPUSCULAR HGB CONC 33.8 g/dL (31-35); MEAN CORPUSCULAR VOLUME 94.6 fL (81-99); MONOCYTES # (AUTO) 0.9 (0.2-0.8); MONOCYTES % 16.9 % (4.4-11.3); NEUTROPHILS % 58.2 % (38.7-80.0); PLATELET COUNT 235 x10e3/uL (140-360); RED BLOOD COUNT 3.13 x10e6/uL (4.3-5.7); RED CELL DISTRIBUTION WIDTH 16.1 % (11.7-14.4)
[2019-08-10 06:24] LABS: ALANINE AMINOTRANSFERASE 11 IU/L (0-55); ALBUMIN 2.9 g/dL (3.5-5.0); ALBUMIN/GLOBULIN RATIO 0.7 (0.8-2.0); ALKALINE PHOSPHATASE 114 IU/L (40-150); ANION GAP 9.5 mmol/L (8-16); BLOOD UREA NITROGEN 16 mg/dL (7-26); BUN/CREATININE RATIO 19 (6-25); CALCIUM 8.6 mg/dL (8.4-10.2); CARBON DIOXIDE 22 mmol/L (22-29); CHLORIDE 104 mmol/L (98-107); CREATININE, SERUM 0.85 mg/dL (0.72-1.25); EST GLOMERULAR FILTRATION RATE > 60 ML/MIN (60-); GLUCOSE 93 mg/dL (74-118); POTASSIUM 4.5 mmol/L (3.5-5.1); SODIUM 131 mmol/L (136-145)
--- NOTE | 2019-08-10 07:00 | NUR ---
BEDSIDE SHIFT REPORT RECEIVED FROM THE PROSTHETICS TECHNICIAN RN. PT IS AAOX1-2. NO SITTER AT BEDSIDE. BED ALARM IS ON. EDUCATED PT ABOUT FALL PRECAUTIONS. PT VERBALIZED UNDERSTANDING. CALL LIGHT WITH IN EASY REACH. INSTRUCTED PT TO USE CALL LIGHT FOR ALL THE NEEDS. BED IS LOW AND LOCKED. SIDE RAILS X2. PT DENIES NEEDS AT THIS TIME.
--- NOTE | 2019-08-10 07:00 | NUR ---
Shift report given to oncoming nurse.
--- NOTE | 2019-08-10 08:00 | NUR ---
KNEE HIGH JACQUELINE HOSE APPLIED PER THE ORDER.
[2019-08-10] MEDS: PANTOPRAZOLE SOD 40 MG TABEC PO SCH (08:30)
[2019-08-10] MEDS: LACTULOSE SYRUP 20 GM/30 ML UDC PO SCH ×3 (08:32→20:54)
[2019-08-10] MEDS: FOLIC ACID 1 MG TAB PO SCH (08:33)
[2019-08-10] MEDS: SPIRONOLACTONE 25 MG TAB PO SCH (08:33)
[2019-08-10] MEDS: RIFAXIMIN 550 MG TABLET PO SCH ×2 (08:34→16:05)
[2019-08-10] MEDS: FUROSEMIDE 40 MG TAB PO SCH (09:00)
--- NOTE | 2019-08-10 15:53 | Progress Note ---
DATE: 08/10/2019 Medicine Progress Note SUBJECTIVE: The patient is doing much better. He is much more alert, but his ammonia level is still high. He is having some bowel movements. Discussed plan of care with the daughter, Terri, by phone. PHYSICAL EXAMINATION: VITAL SIGNS: Temperature is 96.9, pulse 80, respiratory rate 17, blood pressure 98/80, and pulse ox 99% on room air. GENERAL: Not in acute distress. Alert and oriented x3. Cooperative on examination. HEENT: Head; normocephalic, atraumatic. Eyes; pupils are equal, round, and reactive to light bilaterally. Extraocular movements intact bilaterally. Throat; no evidence of erythema or exudates in the posterior pharynx. Has poor dentition. NECK: Supple. Good range of motion. PULMONARY: Clear to auscultation bilaterally. No wheezing, no rales, no rhonchi, no crackles appreciated. CARDIOVASCULAR: Positive S1 and S2. No murmurs, rubs, or gallops appreciated. ABDOMEN: Soft, nondistended, and nontender to palpation. Bowel sounds present. MUSCULOSKELETAL: Strength is 5/5 throughout. No evidence of any muscle deficits on examination. No weakness appreciated. NEUROLOGIC: Cranial nerves 2 through 12 grossly intact. No evidence of any neurological deficits on exam. SKIN: Intact. Warm to touch. Good cap refill. PSYCHIATRIC: Normal affect and mood. EXTREMITIES: No edema. Good range of motion throughout. LABORATORY FINDINGS: Show white count was 5.1, hemoglobin 10, hematocrit 29.6, and platelets of 235. Chemistry; sodium 131, potassium 4.5, chloride 104, bicarb 22, anion gap of 9.5, BUN 16, creatinine is 0.85. His ammonia level still 170 and elevated alpha-fetoprotein is pending. Urinalysis noted. MICROBIOLOGY: Body fluid, no growth to date. IMAGING STUDIES: Chest, none today. IMPRESSION: 1. Hepatic encephalopathy with hyperammonemia. 2. Chronic hyponatremia, secondary to liver cirrhosis. 3. Chronic hypotension, secondary to liver cirrhosis. 4. Pulmonary edema, status post thoracentesis. 5. Stage IV metastatic cancer following outpatient. PLAN: At this time, I had a long discussion with the patient's daughter, Terri, by phone with the nurse present, Adam, throughout this entire conversation and after talking with her, she reports that they have been well aware of this liver cancer that he has. Of note, they were in the process of having a procedure done at [facility], but with this current pandemic that was canceled. His GI doctor was in the process of sending him to an oncologist to have further evaluation and management. We are supposed to get him sort of biopsy with the GI physician as an outpatient with this pandemic was all canceled. At this time, we will continue with same plan of care. His ammonia level is still elevated. He seems much better, but still mildly confused. Repeat ammonia level in the morning. Increase the lactulose. If his ammonia levels better, discharge home tomorrow. Otherwise, he is doing well with no complaints and Terri, his daughter, verbalized understanding and agrees to plan of care described. MD MANUEL Cunningham/YESSI /[id number]
--- NOTE | 2019-08-10 16:15 | NUR ---
Nutrition Screen Note RD Recommendation for Physician: -Continue current diet as ordered Plan of Care: RD following, monitoring for tolerance and adequacy Nutrition reason for involvement: Nutrition Risk Trigger MST 2 Primary Diagnose(s): hepatic encephalopathy, hyperkalemia, HCC, right pleural effusion PMH: Liver cirrhosis stage IV, chronic hypotension from liver cirrhosis, anemia of chronic disease, chronic hyponatremia. Ht: 71 in Wt:200 lb BMI: 27.9 kg/m2 IBW:[address] Assessment: (08/09) Chart reviewed. Labs and meds reviewed. Pt is a 63 year old male admitted with hepatic encephalopathy, hyperkalemia, HCC, and right pleural effusion. Pt was sleeping at time of visit; therefore, spoke to RN who reported pt ate well this morning. It is recorded that pt consumed 100% of breakfast this morning and 75-100% of meals yesterday. No N/V/D/C or chewing/swallowing issues per RN. Will continue to monitor Current Diet: cardiac Malnutrition Evaluation (08/10/19) The patient does not meet criteria for a specified degree of malnutrition at this time. Will re-evaluate at follow-up as appropriate. Diet Education Needs Assessment: RD is available for diet education as needed Nutrition Care Level: low Signed: Radha Barbour, RD, LD
--- NOTE | 2019-08-10 18:55 | NUR ---
BEDSIDE SHIFT REPORT GIVEN TO THE RETAIL BANKING MANAGER RN. PT DENIED FURTHER NEEDS.
--- NOTE | 2019-08-10 19:00 | NUR ---
Patient received lying in bed. AAO x 2. No signs of pain, discomfort or confusion. Safety measures in place. Call light within reach.
[2019-08-11] VITALS (8 sets, daily range): BP systolic 107–115; BP diastolic 64–85
[2019-08-11] MEDS: HYDROCODONE/APAP 5MG-325MG TAB PO PRN ×2 (00:28→20:38)
[2019-08-11] MEDS: MIDODRINE 2.5 MG TAB PO SCH ×3 (05:59→17:26)
--- NOTE | 2019-08-11 06:56 | NUR ---
Bedside report given to oncoming nurse.
--- NOTE | 2019-08-11 07:00 | NUR ---
BEDSIDE SHIFT REPORT RECEIVED FROM THE ACQUISITION PROFESSIONAL RN. PT IS ALERT. CALL LIGHT WITH IN EASY REACH. BED IS LOW AND LOCKED. SIDE RAILS X2. BED ALARM IS ON. PT NEEDS AT THIS TIME.
[2019-08-11] MEDS: PANTOPRAZOLE SOD 40 MG TABEC PO SCH (08:20)
[2019-08-11] MEDS: LACTULOSE SYRUP 20 GM/30 ML UDC PO SCH ×3 (08:20→20:37)
[2019-08-11] MEDS: FOLIC ACID 1 MG TAB PO SCH (08:20)
[2019-08-11] MEDS: RIFAXIMIN 550 MG TABLET PO SCH ×2 (08:20→16:35)
[2019-08-11] MEDS: FUROSEMIDE 40 MG TAB PO SCH (08:23)
[2019-08-11] MEDS: SPIRONOLACTONE 25 MG TAB PO SCH (08:58)
--- NOTE | 2019-08-11 15:15 | NUR ---
DR. MISHRA AT BEDSIDE. CANCEL D/C ORDER PER DR. MISHRA.
[2019-08-11] MEDS ORDERED: DOCUSATE SODIUM 100 MG CAP PO NR (16:00)
--- NOTE | 2019-08-11 17:46 | Progress Note ---
DATE: Medicine Progress Note SUBJECTIVE: The patient is confused today. He is okay, but still very confused more than yesterday. His ammonia level is still elevated. OBJECTIVE: VITAL SIGNS: He is afebrile, normotensive. Respiratory rate is good. GENERAL: Not in acute distress. Alert and oriented x3. Cooperative on examination. HEENT: Head; normocephalic, atraumatic. Eyes; pupils are equal, round, and reactive to light bilaterally. Extraocular movements intact bilaterally. Throat; no evidence of erythema or exudates in the posterior pharynx. Has poor dentition. NECK: Supple. Good range of motion. PULMONARY: Clear to auscultation bilaterally. No wheezing, no rales, no rhonchi, no crackles appreciated. CARDIOVASCULAR: Positive S1 and S2. No murmurs, rubs, or gallops appreciated. ABDOMEN: Soft, nondistended, and nontender to palpation. Bowel sounds present. MUSCULOSKELETAL: Strength is 5/5 throughout. No evidence of any muscle deficits on examination. No weakness appreciated. NEUROLOGIC: Cranial nerves 2 through 12 grossly intact. No evidence of any neurological deficits on exam. SKIN: Intact. Warm to touch. Good cap refill. PSYCHIATRIC: Normal affect and mood. EXTREMITIES: No edema. Good range of motion throughout. LABORATORY DATA: His labs, only ammonia level is pertinent positive is 161. Microbiology, negative. IMPRESSION: 1. Hepatic encephalopathy with hyperammonemia. 2. Chronic hyponatremia, secondary to liver cirrhosis. 3. Chronic hypotension, secondary to liver cirrhosis. 4. Pulmonary edema, status post thoracentesis. 5. Stage IV metastatic cancer, likely liver in nature. PLAN: At this time, continue with same plan of care. He is still kind of confused on exam. We will increase the lactulose dose. We will get a.m. labs including ammonia level. I had a long discussion yesterday with the daughter, Terri, about his liver situation and they are well aware of his liver cancer and he is following with [facility] at [facility]. Otherwise, we will monitor and continue same plan of care. No changes at this time, except we will increase the lactulose. MD MANUEL Cunningham/MODL /[id number]
--- NOTE | 2019-08-11 19:00 | NUR ---
Received patient from day nurse, patient is stable. safety and fall precautions maintained at this time: bed in lowest position and looked, needed items beside bed and call chapman placed close to patient, patient is currently stable will continue to monitor.
--- NOTE | 2019-08-11 19:00 | NUR ---
BEDSIDE SHIFT REPORT GIVEN TO THE WASHTUB WORKER RN. PT DENIED FURTHER NEEDS.
[2019-08-11] MEDS: MELATONIN 5 MG TABLET PO SCH (20:37)
[2019-08-12] VITALS (8 sets, daily range): BP systolic 96–148; BP diastolic 62–93
[2019-08-12 05:54] LABS: BASOPHILS % 0.6 % (0.0-1.0); EOSINOPHILS # (AUTO) 0.1 (0.0-0.4); EOSINOPHILS % 1.1 % (0.0-6.0); HEMATOCRIT 36.3 % (38.2-49.6); HEMOGLOBIN 12.1 g/dL (14.0-18.0); LYMPHOCYTES % 30.9 % (18.0-39.1); MEAN CORPUSCULAR HEMOGLOBIN 31.7 pg (28-32); MEAN CORPUSCULAR HGB CONC 33.3 g/dL (31-35); MONOCYTES # (AUTO) 0.9 (0.2-0.8); MONOCYTES % 14.5 % (4.4-11.3); NEUTROPHILS # (AUTO) 3.4 (2.1-6.9); NEUTROPHILS % 52.6 % (38.7-80.0); PLATELET COUNT 291 x10e3/uL (140-360); RED BLOOD COUNT 3.82 x10e6/uL (4.3-5.7); RED CELL DISTRIBUTION WIDTH 16.3 % (11.7-14.4)
[2019-08-12] MEDS: MIDODRINE 2.5 MG TAB PO SCH ×3 (06:00→17:09)
[2019-08-12 06:03] LABS: ANION GAP 13.5 mmol/L (8-16); BLOOD UREA NITROGEN 21 mg/dL (7-26); BUN/CREATININE RATIO 19 (6-25); CALCIUM 9.3 mg/dL (8.4-10.2); CARBON DIOXIDE 24 mmol/L (22-29); CHLORIDE 98 mmol/L (98-107); CREATININE, SERUM 1.09 mg/dL (0.72-1.25); EST GLOMERULAR FILTRATION RATE > 60 ML/MIN (60-); GLUCOSE 85 mg/dL (74-118); POTASSIUM 4.5 mmol/L (3.5-5.1); SODIUM 131 mmol/L (136-145)
--- NOTE | 2019-08-12 07:36 | NUR ---
patient endorsed to next shift for continuity of care.
[2019-08-12] MEDS: FOLIC ACID 1 MG TAB PO SCH (08:13)
[2019-08-12] MEDS: RIFAXIMIN 550 MG TABLET PO SCH ×2 (08:13→17:08)
[2019-08-12] MEDS: SPIRONOLACTONE 25 MG TAB PO SCH (08:13)
[2019-08-12] MEDS: PANTOPRAZOLE SOD 40 MG TABEC PO SCH (08:13)
[2019-08-12] MEDS: LACTULOSE SYRUP 20 GM/30 ML UDC PO SCH ×3 (08:13→21:20)
[2019-08-12] MEDS: FUROSEMIDE 40 MG TAB PO SCH (08:13)
[2019-08-12] MEDS: HYDROCODONE/APAP 5MG-325MG TAB PO PRN (08:13)
[2019-08-12] MEDS ORDERED: DOCUSATE SODIUM LIQD 100 MG/10 ML UDC NG NR (14:45)
[2019-08-12] MEDS ORDERED: CITRATE OF MAGNESIA 300ML BOTTLE PO NR (14:45)
--- NOTE | 2019-08-12 17:10 | Progress Note ---
DATE: 08/12/2019 Mr. 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 The patient hematologically stable with a hemoglobin of 12.1, white count of 6470, and platelets of 291,000. However, his ammonia level has been going up, it was 170 on 08/10/2019, 151 yesterday, still 143, much too high as I have dictated. The patient should be sent back once stable enough to Dr. Jones, the wood cut engraver, who has been watching him. Prognosis remains extremely poor. MD МАРИНА Zelaya/YESSI /[id number]
--- NOTE | 2019-08-12 17:20 | Progress Note ---
DATE: 08/12/2019 MEDICINE PROGRESS NOTE SUBJECTIVE: The patient is at his baseline, still very confused, but improving daily. Still had no bowel movement. LABORATORY DATA: Labs show white count 6.4, hemoglobin 12, hematocrit 36, and platelets of 291. PT 17 and INR 1.3. Chemistry; sodium 131, potassium 4.5, chloride 98, bicarbonate 24, anion gap of 13, BUN is 21, and creatinine is 1. PHYSICAL EXAMINATION: VITAL SIGNS: Temperature is 97.4, pulse 86, respiratory rate is 20, blood pressure is 106/66, and pulse ox 96% on room air. GENERAL: He is confused, but more alert today than yesterday. HEENT: Head; normocephalic and atraumatic. Eyes; pupils are equal, round, and reactive to light bilaterally. Extraocular movements intact. NECK: Supple. Good range of motion. Throat; no evidence of erythema or exudates in the posterior pharynx. Has poor dentition. PULMONARY: Clear to auscultation bilaterally. No wheezing, rales, or rhonchi. No crackles appreciated. CARDIOVASCULAR: Positive S1 and S2. No murmurs, rubs, or gallops. ABDOMEN: Soft, nondistended, and nontender to palpation. Bowel sounds present. MUSCULOSKELETAL: Strength is 5/5 throughout. NEUROLOGIC: No evidence of any neurological deficits on exam. SKIN: Intact. Warm to touch. Good cap refill. PSYCHIATRIC: Confused. EXTREMITIES: No edema. Good range of motion throughout. IMPRESSION: 1. Hepatic encephalopathy with hyperammonemia. 2. Chronic hyponatremia, secondary to liver cirrhosis. 3. Chronic hypotension, secondary to liver cirrhosis. 4. Pulmonary edema, status post thoracentesis. 5. Stage IV metastatic cancer, likely to be liver in nature. PLAN: At this time, the patient still continues to be a bit confused. He has not had any bowel movements despite increase in the lactulose. We will add a bottle of magnesium citrate and 200 of p.o. Colace to see if he has several bowel movements in order for the patient to become more coherent. We will continue with the scheduled lactulose. Like I said, I spoke with the daughter several days ago and they are date. They are aware of his cancer situation. They feel it is likely liver according to her that the GI doctor told her. So at this time, the patient will follow up with the [facility] specialist. We will give them a referral. They were in the process, but due to the current endemic with vergara virus, they were lost to follow up and unable to make another appointment. Otherwise, we will get repeat ammonia level in the morning. MD MANUEL Cunningham/YESSI /[id number]
--- NOTE | 2019-08-12 17:49 | NUR ---
Patient has not voided this afternoon. Bladder scan done 18ml noted
--- NOTE | 2019-08-12 18:49 | NUR ---
Report given to oncoming nurse of patients status. Resting in bed. No s/s of acute distress noted. Respirations even and unlabored. Side rails upx2, call light within reach, bed alarm on.
--- NOTE | 2019-08-12 19:00 | NUR ---
Received patient from day nurse, patient is alert but confused, safety and fall precautions maintained as per hospital protocol: bed in lowest position and locked needed items beside and call light placed close to patient. Patient is currently stable will continue to monitor.
[2019-08-12] MEDS: MELATONIN 5 MG TABLET PO SCH (21:20)
[2019-08-13] VITALS (7 sets, daily range): BP systolic 107–136; BP diastolic 63–86
[2019-08-13 05:51] LABS: BASOPHILS % 0.2 % (0.0-1.0); EOSINOPHILS % 0.3 % (0.0-6.0); HEMATOCRIT 33.8 % (38.2-49.6); HEMOGLOBIN 11.2 g/dL (14.0-18.0); LYMPHOCYTES # (AUTO) 1.3 (1.0-3.2); LYMPHOCYTES % 21.4 % (18.0-39.1); MEAN CORPUSCULAR HEMOGLOBIN 31.1 pg (28-32); MEAN CORPUSCULAR HGB CONC 33.1 g/dL (31-35); MEAN CORPUSCULAR VOLUME 93.9 fL (81-99); MONOCYTES # (AUTO) 0.9 (0.2-0.8); MONOCYTES % 14.9 % (4.4-11.3); NEUTROPHILS # (AUTO) 3.8 (2.1-6.9); NEUTROPHILS % 62.5 % (38.7-80.0); PLATELET COUNT 240 x10e3/uL (140-360)
[2019-08-13 05:54] LABS: ANION GAP 11.7 mmol/L (8-16); BLOOD UREA NITROGEN 21 mg/dL (7-26); BUN/CREATININE RATIO 22 (6-25); CALCIUM 8.9 mg/dL (8.4-10.2); CARBON DIOXIDE 24 mmol/L (22-29); CHLORIDE 100 mmol/L (98-107); CREATININE, SERUM 0.95 mg/dL (0.72-1.25); EST GLOMERULAR FILTRATION RATE > 60 ML/MIN (60-); GLUCOSE 95 mg/dL (74-118); POTASSIUM 4.7 mmol/L (3.5-5.1); SODIUM 131 mmol/L (136-145)
[2019-08-13] MEDS: MIDODRINE 2.5 MG TAB PO SCH ×3 (06:00→18:00)
--- NOTE | 2019-08-13 06:00 | NUR ---
patient had three bm
--- NOTE | 2019-08-13 06:45 | NUR ---
Patient endorsed to next shift for continuity of care.
--- NOTE | 2019-08-13 08:30 | NUR ---
PT AWAKE AND ALERT. RESP EVEN WITHOUT DISTRESS.
[2019-08-13] MEDS: FUROSEMIDE 40 MG TAB PO SCH (08:55)
[2019-08-13] MEDS: RIFAXIMIN 550 MG TABLET PO SCH ×2 (08:55→17:20)
[2019-08-13] MEDS: SPIRONOLACTONE 25 MG TAB PO SCH (08:55)
[2019-08-13] MEDS: PANTOPRAZOLE SOD 40 MG TABEC PO SCH (08:55)
[2019-08-13] MEDS: FOLIC ACID 1 MG TAB PO SCH (08:55)
[2019-08-13] MEDS: LACTULOSE SYRUP 20 GM/30 ML UDC PO SCH ×3 (08:55→22:37)
--- NOTE | 2019-08-13 09:30 | NUR ---
DR. AGRAWAL AT BEDSIDE. NO ORDERS NOTED.
--- NOTE | 2019-08-13 12:30 | NUR ---
Pt up ambulating with PT.
--- NOTE | 2019-08-13 13:30 | NUR ---
DR. MISHRA AT BEDSIDE. NEW ORDER NOTED FOR MRI.
--- NOTE | 2019-08-13 14:30 | NUR ---
PT TO MRI VIA WHEELCHAIR.
[2019-08-13] MEDS ORDERED: GADOBENATE DIMEGLUMINE 0 ML IV ONE ×2 (14:44→15:28)
--- NOTE | 2019-08-13 15:10 | NUR ---
PT RETURN FROM MRI. MRI NOT ABLE TO BE DONE. DR. MISHRA NOTIFIED. NEW ORDER FOR XANAX PO TO BE GIVEN.
--- NOTE | 2019-08-13 15:15 | NUR ---
XANAX 0.5MG PO GIVEN.
[2019-08-13] MEDS ORDERED: ALPRAZOLAM 0.5 MG TAB PO ONE (15:30)
--- NOTE | 2019-08-13 16:15 | NUR ---
PT TO MRI VIA
--- NOTE | 2019-08-13 17:00 | NUR ---
PT RETURN FROM MRI, STATE NOT ABLE TO PERFORM MRI, PT WILL NOT HOLD HEAD IN PLACE.
--- NOTE | 2019-08-13 18:17 | NUR ---
PT RESTING IN BED. RESP EVEN WITHOUT DISTRESS.
[2019-08-13] MEDS ORDERED: MELATONIN 5 MG TABLET PO PRN (21:15)
--- NOTE | 2019-08-13 21:53 | Progress Note ---
DATE: 08/13/2019 Medicine Progress Note SUBJECTIVE: The patient seems to be confused, a bit better today compared to yesterday, but still confused on exam. No overnight events. He has had multiple bowel movements and his ammonia level has decreased. OBJECTIVE: VITAL SIGNS: Temperature 98.2, pulse 86, respiratory rate 17, blood pressure 117/78, pulse ox 95% on room air. GENERAL: He is alert, awake, and oriented x2 only. HEENT: Head is normocephalic and atraumatic. Eyes; pupils are distant bilaterally. Extraocular movements intact bilaterally. Throat; no evidence of erythema or exudates in the posterior pharynx. He has poor dentition. NECK: Supple. Good range of motion throughout. PULMONARY: Clear to auscultation bilaterally. No wheezing, rales, or rhonchi. No crackles appreciated. CARDIOVASCULAR: Positive S1 and S2. No murmurs, rubs, or gallops appreciated. ABDOMEN: Soft, nondistended, nontender to palpation. Bowel sounds present. MUSCULOSKELETAL: Strength is 5/5 throughout. No evidence of any muscle deficits on examination. No weakness appreciated. NEUROLOGIC: Cranial nerve II through XII are grossly intact. No evidence of any neurological deficits on exam. SKIN: Intact. Warm to touch. Good cap refill. PSYCHIATRIC: Normal affect and mood. EXTREMITIES: No edema. Good range of motion throughout. LABORATORY DATA: CBC reviewed and stable. Chemistry, sodium is 131. Rest of the electrolytes are stable. Ammonia level down trending to 60. MICROBIOLOGY: Gram stain of the body fluid was found to be no growth at the moment. IMPRESSION: 1. Hepatic encephalopathy with hyperammonemia. 2. Chronic hyponatremia, secondary to liver cirrhosis. 3. Chronic hypotension, secondary to liver cirrhosis. 4. Pulmonary edema, status post thoracentesis. 5. Stage IV metastatic cancer, likely to be liver cancer in nature. PLAN: At this time, his electrolytes and hemoglobin are stable. He has had several bowel movements now. He seems to be more alert today on examination. We will continue with lactulose. I did order an MRI of the brain with and without contrast as he is still a bit confused more than his baseline. We will await those final results. If unable to get the MRI of the brain, the patient will be discharged home with family with close followup as an outpatient with their GI specialist in [place] and their Hematology/Oncology as well. Otherwise, we will repeat labs in the morning. MD MANUEL Cunningham/YESSI /[id number]
[2019-08-14] VITALS: BP 109/68
[2019-08-14 04:00] VITALS: BP 123/67
[2019-08-14] MEDS: MIDODRINE 2.5 MG TAB PO SCH (05:45)
[2019-08-14 07:34] VITALS: BP 115/67
--- NOTE | 2019-08-14 09:44 | Progress Note ---
DATE: 08/14/2019 Mr. Gagnon is a 63-year-old male, who was referred to me for evaluation of multicentric hepatoma. For detailed consult, please review my dictation. This patient still has right-sided pleural effusion, patchy airspace opacity is noted in the right lung, it has indicated on 08/09/2019 chest x-ray and the patient also had thoracentesis on 08/09/2019, a total of 450 mL was taken out. Hematologically, the patient remained stable with a hemoglobin of 11.2, white count of 6300, and platelets of 240,000 dated 08/13/2019. The patient's chemistry shows ammonia level fluctuating between 143 on 08/12/2019 to 60, on 08/13/2019 to 140 again. Prognosis of this patient remains extremely guarded and the patient should be sent back to the hockey scout, Dr. Jones once stable enough. Prognosis is extremely poor. MD МАРИНА Zelaya/YESSI /[id number]
--- NOTE | 2019-08-14 10:20 | NUR ---
Pt sleeping soundly and no family present. Security Orderly left a card describing availability of otolaryngology teacher and instructions on how to contact a otolaryngology teacher. CRESCENCIO RESENDIZ [employer] Spiritual Care Department O: [phone]
[2019-08-14 11:16] VITALS: BP 119/67
[2019-08-14] MEDS: SPIRONOLACTONE 25 MG TAB PO SCH (12:09)
[2019-08-14] MEDS: RIFAXIMIN 550 MG TABLET PO SCH (12:09)
[2019-08-14] MEDS: FUROSEMIDE 40 MG TAB PO SCH (12:09)
[2019-08-14] MEDS: PANTOPRAZOLE SOD 40 MG TABEC PO SCH (12:09)
[2019-08-14] MEDS: FOLIC ACID 1 MG TAB PO SCH (12:09)
[2019-08-14] MEDS: LACTULOSE SYRUP 20 GM/30 ML UDC PO SCH (12:09)
[2019-08-14 12:27] VITALS: BP 119/67
--- NOTE | 2019-08-14 13:28 | NUR ---
ABBI called pt's daughter Terri and explained IMM letter. She verbalized understanding. ABBI informed her that MD plans on discharging pt today. She states she will call the nurse to get an ETA so she can come pick pt up. Signed copy placed in chart. Copy given to DONELL Diop to place with pt's paperwork.
--- NOTE | 2019-08-14 14:55 | NUR ---
pt discharged home, with no prescriptions, alert and oriented, no resp issues ., pt was asked to follow up with his PCP, iv site removed no bleeding no redness to site. pt family members received him at front entrance.
--- NOTE | 2019-08-14 23:18 | Discharge Summary ---
FINAL DISCHARGE DIAGNOSES: 1. Hepatic encephalopathy with hyperammonemia-improved. 2. Chronic hyponatremia, secondary to liver cirrhosis. 3. Chronic hypotension, secondary to liver cirrhosis. 4. Pulmonary edema, status post thoracentesis, resolved. 5. Stage IV metastatic cancer, likely liver cancer in nature-needs outpatient followup with his primary GI specialist with referral to gas regulator repairer/oncologist. This was discussed with the family and they verbalized understanding. CONSULTANTS: Hematology/Oncology, Pulmonology. PHYSICAL EXAMINATION: VITAL SIGNS: Temperature 98.5, pulse 76, respirations 18, blood pressure 119/67, pulse ox is 93% on room air. LABORATORY FINDINGS: White count 6, hemoglobin 11.2, hematocrit 34, platelets of 240. Coagulation, PT 17, INR 1.3. Sodium 131, potassium 4.7, chloride 100, bicarb 24, anion gap of 11, BUN 21, creatinine is 0.95, glucose 95, calcium is 8.9, AST 26, ALT is 11, total bilirubin is 1.8, ammonia level 60, CK 54. Troponins were all negative. Albumin was 2.9, lipase level 43. Alpha fetoprotein is 4.5. Lipase level 43. Urinalysis negative. Thoracentesis fluid negative. Microbiology body fluid culture from the thoracentesis, no organism seen, no growth either. IMAGING STUDIES: CT abdomen and pelvis shows cirrhosis with mass within the left lobe, suggestive of hepatocellular carcinoma. 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 Loculated right pleural effusion containing small droplets of air, possibly secondary to thoracentesis attempt. Volume loss of the right chest and rounded atelectasis of the upper and lower lobes. There is some subcarinal lymph node, suggestive of neoplastic process, possibly metastasis. Small bowel containing umbilical hernia. Small bowel loops are distended with fluid. This may represent mild ileus. There was no evidence of any ileus on exam or in the hospital stay. No splenomegaly or ascites. HOSPITAL COURSE: This is a 63-year-old male, who comes into the ED with underlying hepatic encephalopathy, who was found to have elevated ammonia levels. The patient was admitted and Hematology/Oncology and Pulmonary were consulted. As per Pulmonary, the patient was found to have pulmonary edema in which the patient underwent a thoracentesis and had 450 mL of serosanguineous fluid with debris evacuated. Body fluid cultures from the thoracentesis found to be negative for any growth. The patient's breathing improved throughout the hospital course. The patient was on lactulose schedule t.i.d. in which initially he was alert, awake, then he got confused and then he improved prior to being discharged home. He would continue to have several bowel movements on the lactulose regimen initiated. His encephalopathy resolved prior to being discharged to home. We had a CT brain performed here in which he was found to be negative. We attempted an MRI of the brain on two occasions, but the patient was unable to tolerate the exam and the patient refused to have the test further repeated after several attempts. At this time, as per patient's wishes, the MRI of the brain was discontinued. Chest x-ray on 08/09/2019 shows no evidence of pneumothorax after the right-sided thoracentesis. He has some small amount of effusion, but improved. Hematology/Oncology was consulted and it was felt the patient likely has some sort of stage IV likely liver cancer, but we were not able to perform any kind of biopsy here. I discussed this case with the patient's daughter by phone and talked to her about the findings we were able to see on imaging studies, and she reports to me that they are aware of these findings. They know that he has some underlying malignancy in cancer and they were in the process with a GI specialist to refer them to an oncologist, but with the recent pandemic, they were unable to make any of those appointments. She verbalized to me that she will follow up with her GI specialist at [facility], in which they had promised that they will get an appointment to see an oncologist once this pandemic is resolved. Like I said, once again, they were in the process of having that referral. They actually had an appointment to have some biopsy performed with the GI specialist at [facility], but was canceled due to this particular situation at this time. At this time, our gas regulator repairer/oncologist recommends for them to follow up very closely with her GI specialist with referral to an oncologist, who works in collaboration with the GI specialist. I reiterated that to the family and the daughter by phone and they verbalized agreement and verbalized understanding. The patient was cleared for discharge by Pulmonary and Hematology/Oncology. On the day of discharge, vital signs were stable, labs reviewed and stable. The patient is seen, evaluated, and examined thoroughly on the day of discharge. No other complaints. The patient verbalized understanding and agrees to plan of care to follow up as an outpatient with the primary care physician in one week and GI specialist in the next one week with referral to a gas regulator repairer/oncologist for further management and care. At this time, the patient has been cleared for discharge by all consultants. The patient was alert, awake, and oriented on examination prior to being discharged home and he was stable. MEDICATIONS: See med reconciliation form. DISPOSITION: Home. CONDITION: Stable. DIET: Heart healthy. In the event of worsening symptoms, the patient was advised to come back to the ED for further evaluation. Discharge summary took greater than 35 minutes. MD MANUEL Cunningham/MODL /[id number]
== END 2019-08-14 15:06 | disposition home or self-care (01) | DRG 432 ==
LOC: ER 19:35 → ERHOLD 21:58 → MED/SURG2 22:56 → OBSVTOIN 08-10 14:58
PROVIDERS: ADMIT Internal Medicine; ATTEND Internal Medicine
PROC: 0W993ZX Drainage of Right Pleural Cavity, Percutaneous Approach, Diagnostic (ICD-10-PCS; principal; 2019-08-10)
DX: K74.60 Unspecified cirrhosis of liver (principal); K72.00 Acute and subacute hepatic failure without coma; J81.1 Chronic pulmonary edema; E87.1 Hypo-osmolality and hyponatremia; J94.8 Other specified pleural conditions; C22.0 Liver cell carcinoma; C77.1 Secondary and unspecified malignant neoplasm of intrathoracic lymph nodes; C79.9 Secondary malignant neoplasm of unspecified site; D63.8 Anemia in other chronic diseases classified elsewhere; E77.8 Other disorders of glycoprotein metabolism; E88.09 Other disorders of plasma-protein metabolism, not elsewhere classified; I95.89 Other hypotension
CPT/HCPCS: 32555; 36415; 70450; 71045; 74177; 74470; 80048; 80053; 81001; 82105; 82140; 82550; 82553; 82948; 83615; 83690; 84157; 84484; 85025; 85610; 87070; 87205; 88112; 88305; 89051; 97139; 99284; G0378; J7030; Q9967